=== PATIENT | female | born 1990 | race Caucasian/White ===

== ENCOUNTER 2020-05-05 11:24 | Outpatient (CLI) | payer OTHER, BC, SELFPAY ==
--- NOTE | ~2020-05-05 | XR_ITS ---
XR abdomen/kub 1V DATE: 05/05/2020 11:46 INDICATION: Bilateral kidney stones TECHNIQUE: 2 AP views COMPARISON: None FINDINGS: There are scattered bilateral calcified kidney stones. The psoas shadows are intact. No visceromegaly is detected. No bowel obstruction. The lung bases a re clear. Normal heart size. Included skeletal structures are unremarkable. IMPRESSION: Bilateral nephrolithiasis Reviewed, dictated and finalized at [facility]. Reviewed, dictated and finalized at location [facility]. IMPRESSION: Bilateral nephrolithiasis
== END 2020-05-05 11:25 | disposition home or self-care (01) ==
PROVIDERS: PCP Internal Medicine; Visit Provider Nurse Practitioner Adult Health
DX: N20.0 Calculus of kidney (principal)
CPT/HCPCS: 74018

== ENCOUNTER 2020-05-18 07:53 | Outpatient (CLI) | payer OTHER, SELFPAY ==
[2020-05-18 08:28] LABS: Partial Thromboplastin Time 26.8 SECONDS (22.3-36.8); Prothrombin Time 12.4 Seconds (11.1-14.7)
[2020-05-18 08:46] LABS: Beta HCG Quantitative < 2.39 mIU/ML
== END 2020-05-18 07:54 | disposition home or self-care (01) ==
PROVIDERS: PCP Internal Medicine; Visit Provider Urology
DX: Z01.818 Encounter for other preprocedural examination (principal); N20.0 Calculus of kidney
CPT/HCPCS: 36415; 84702; 85610; 85730; 87086

== ENCOUNTER 2020-05-26 01:03 | Outpatient (CLI) | payer OTHER, SELFPAY ==
[2020-05-26 19:19] LABS: SARS-CoV-2 RNA PCR Negative
== END 2020-05-26 01:04 | disposition home or self-care (01) ==
LOC: ANHCOVIDDT 01:03
PROVIDERS: PCP Internal Medicine; Visit Provider Urology
DX: Z01.812 Encounter for preprocedural laboratory examination (principal); Z11.59 Encounter for screening for other viral diseases
CPT/HCPCS: 87635; C9803; U0003

== ENCOUNTER 2020-05-28 02:32 | Day surgery (SDC) | payer OTHER, SELFPAY ==
[2020-05-12 11:13] VITALS: BMI 21.9
--- NOTE | 2020-05-21 13:02 | P.HP_ITS ---
History of Present Illness History of Present Illness Consent: Risks, benefits, and alternatives have been discussed and questions answered. Patient agrees to proceed with procedure. Chief complaint: Right Renal Stone Narrative: Mela John is a 29 year old female with a history of recurring urolithiasis. Recent imaging showed small bilateral nonobstructing renal stones. She somewhat symptomatic on the right prefers to go undergo ESWL. She denies fevers chills or gross hematuria. Review of Systems Cardiovascular: Cardiovascular: Denies chest pain, Denies lightheadedness, Denies palpitations and Denies dyspnea Respiratory: Respiratory: Denies dyspnea Gastrointestinal: Gastrointestinal: Denies diarrhea, Denies nausea and Denies vomiting Genitourinary: Genitourinary: Denies hematuria and Denies dysuria Endocrine: Endocrine: Denies palpitations PMFSH Past Medical History Medical History Anxiety Kidney stone UTI (urinary tract infection) Social History Social History Smoking status: Never smoker Spiritual care concerns: No Meds Home Medications and Allergies Home Medications Medication Instructions Recorded Confirmed Type escitalopram oxalate 10 mg PO HS 10/25/19 05/12/20 History norethindrone-e.estradiol-iron [Lo 1 tablet PO DAILY 10/25/19 05/12/20 History Loestrin Fe] Allergies Allergy/AdvReac Type Severity Reaction Status Date / Time ciprofloxacin Allergy Mild Rash Verified 05/12/20 11:13 Exam Const: General: no acute distress Resp: Effort & Inspection: normal respiratory effort GI: Inspection: non-distended GI Palp: No abdominal tenderness and No Guarding due to palpation present (GI) Auscultation: normal bowel sounds Assessment and Plan Assessment and plan (1) Bilateral renal stones: Code(s): N20.0 - Calculus of kidney Status: Acute Assessment and Plan: * Right ESWL
[2020-05-28] VITALS (7 sets, daily range): BP systolic 99–131; BP diastolic 62–93; PULSE 66–113; RESP 12–18; TEMP 36.2–37.6; O2SAT 97–100
--- NOTE | ~2020-05-28 | XR_ITS ---
EXAMINATION: XR abdomen/kub 1V DATE: 05/28/2020 09:27 INDICATION: Kidney stones. TECHNIQUE: A supine view of the abdomen on 2 radiographs was obtained. COMPARISON: CT abdomen and pelvis 10/25/2019, abdomen radiographs 05/05/2020 FINDINGS: There are no dilated loops of bowel. The kidneys are obscured by bowel. There are three 2 m m stones in right kidney. There is a 3 mm stone in left kidney. IMPRESSION: 1. Bilateral kidney stones. Reviewed, dictated and finalized at location [facility]. IMPRESSION: 1. Bilateral kidney stones.
--- NOTE | 2020-05-28 06:46 | WPDHPUPDATE1 ---
History and Physical Update Update Date/Time: 05/28/20 06:46 History and Physical has been reviewed, including an updated exam of the patient. There are NO changes in the patient's condition. Risks, benefits, and alternatives have been discussed and questions answered. Patient agrees to proceed with procedure.
[2020-05-28] MEDS: LACTATED RINGERS 1,000 ML 30 ML IV CONT ×2 (10:15→12:09)
--- NOTE | 2020-05-28 10:30 | WPDANESEPPF ---
Anes - Initial Pre Proc Eval Procedure: Operation Date: 05/28/20 11:00 Proposed Procedures p Right Extracorporeal Shock Wave Lithotripsy - Noble Lott MD Date/Time: 05/28/20 10:30 Surgeon: Noble Lott MD Pre Op Diagnosis: Right Renal Stone Patient Data Age: 29 Gender: F Height: 5 ft 2 in Weight: 56.7 kg Last Vital Signs Temp 99.7 F H 05/28/20 09:45 Pulse 113 H 05/28/20 09:45 Resp 18 05/28/20 09:45 BP 128/85 05/28/20 09:45 Pulse Ox 98 05/28/20 09:45 Allergies Allergy/AdvReac Type Severity Reaction Status Date / Time ciprofloxacin Allergy Mild Rash Verified 05/25/20 14:58 Home Medications Medication Instructions Recorded Confirmed Type escitalopram oxalate 10 mg PO HS 10/25/19 05/25/20 History norethindrone-e.estradiol-iron [Lo 1 tablet PO DAILY 10/25/19 05/25/20 History Loestrin Fe] Patient hx anesthesia problems: none Family hx anesthesia problems: none PMFSH Past Medical History Medical History Anxiety Kidney stone UTI (urinary tract infection) Social History Social History Smoking status: Never smoker Spiritual care concerns: No Anes - Eval Final PreProcedure Day of Procedure 05/28/20 10:30 Patient weight: normal Heart: regular rate and rhythm Lungs: clear to auscultation Airway: Mallampati scale class II Neurological: alert and oriented Last oral intake: >/= 8 hours ASA classification: II Emergent: no Anesthetic plan: proceed Anesthesia type and monitoring: general LMA and standard monitoring Informed Consent: The patient's anesthetic plan and its attendant risks and benefits were discussed with the patient/family/POA. Questions were solicited and answers provided to the satisfaction of the patient/family/POA.
[2020-05-28] MEDS: ceFAZolin 2 GM/D5W 50 ML 2 GM/50 ML BAG IVPB (11:04)
--- NOTE | 2020-05-28 11:30 | PM.PROC ---
Procedure Note - Detailed Date of procedure: 05/28/20 Pre-op diagnosis: Right Renal Stone Post-op diagnosis: same Procedure performed: Right ESWL Description of procedure: The patient was brought to the operative suite where she was placed in the supine position on the Dornier lithotripsy table. The focal point of the lithotripter was placed at a collection of small stones in the right renal pelvis. A total of 2500 shocks were delivered at a power setting of 2. There appeared to be good fragmentation of the stone. The patient tolerated the procedure well and was taken to the recovery room in good condition. Anesthesia: GLMA Surgeon: Noble Lott MD Estimated blood loss (mL): 0 Drains: No Packing: No Pathology: none sent Complications: No immediate complications Condition: stable Disposition: PACU
== END 2020-05-28 13:51 | disposition home or self-care (01) ==
PROVIDERS: PCP Internal Medicine; Visit Provider Urology
PROC: (CPT 50590; principal; 2020-05-28 11:00)
DX: N20.0 Calculus of kidney (principal); F41.9 Anxiety disorder, unspecified
CPT/HCPCS: 50590; 74018; J0690; J1100; J2250; J2405; J2704; J3010; J7120

== ENCOUNTER 2020-06-18 08:15 | Outpatient (CLI) | payer OTHER, SELFPAY ==
[2020-06-18 08:48] LABS: INR 0.9; Prothrombin Time 11.9 Seconds (11.1-14.7)
[2020-06-18 08:49] LABS: Partial Thromboplastin Time 25.9 SECONDS (22.3-36.8)
[2020-06-18 09:02] LABS: Beta HCG Quantitative < 2.39 mIU/ML
== END 2020-06-18 08:16 | disposition home or self-care (01) ==
LOC: ANHSURGERY 08:16
PROVIDERS: PCP Internal Medicine; Visit Provider Urology
DX: N20.0 Calculus of kidney (principal)
CPT/HCPCS: 36415; 84702; 85610; 85730; 87086; 87088

== ENCOUNTER 2020-06-23 00:57 | Outpatient (CLI) | payer OTHER, SELFPAY ==
[2020-06-23 18:19] LABS: SARS-CoV-2 RNA PCR Negative
== END 2020-06-23 00:58 | disposition home or self-care (01) ==
LOC: ANHCOVIDDT 00:58
PROVIDERS: PCP Internal Medicine; Visit Provider Urology
DX: Z01.812 Encounter for preprocedural laboratory examination (principal); Z20.828 Contact with and (suspected) exposure to other viral communicable diseases
CPT/HCPCS: 87635; C9803; U0003

== ENCOUNTER 2020-06-25 00:58 | Day surgery (SDC) | payer OTHER, SELFPAY ==
[2020-05-25 14:58] VITALS: BMI 21.9
--- NOTE | 2020-06-22 10:50 | P.HP_ITS ---
History of Present Illness History of Present Illness Consent: Risks, benefits, and alternatives have been discussed and questions answered. Patient agrees to proceed with procedure. Chief complaint: Left Renal Stone Narrative: Mela John is a 29 year old female with bilat. renal stones s/p right ESWL 05/28/2020. Review of Systems Cardiovascular: Cardiovascular: Denies chest pain, Denies lightheadedness, Denies palpitations and Denies dyspnea Respiratory: Respiratory: Denies dyspnea Gastrointestinal: Gastrointestinal: Denies diarrhea, Denies nausea and Denies vomiting Genitourinary: Genitourinary: Denies hematuria and Denies dysuria Endocrine: Endocrine: Denies palpitations [facility] Social History Social History Smoking status: Never smoker Spiritual care concerns: No Meds Home Medications and Allergies Home Medications Medication Instructions Recorded Confirmed Type Lo Loestrin Fe 1 tablet PO DAILY 10/25/19 06/09/20 History escitalopram oxalate 10 mg PO HS 10/25/19 06/09/20 History Allergies Allergy/AdvReac Type Severity Reaction Status Date / Time ciprofloxacin Allergy Mild Rash Verified 05/25/20 14:58 Exam Const: General: no acute distress Resp: Effort & Inspection: normal respiratory effort GI: Inspection: non-distended GI Palp: No abdominal tenderness and No Guarding due to palpation present (GI) Auscultation: normal bowel sounds Assessment and Plan Assessment and plan (1) Bilateral renal stones: Code(s): N20.0 - Calculus of kidney Status: Acute Assessment and Plan: * Left ESWL
--- NOTE | 2020-06-24 11:54 | P.PNAN_ITS ---
Anes - Initial Pre Proc Eval Procedure: Operation Date: 06/25/20 07:30 Proposed Procedures p Left Extracorporeal Shock Wave Lithotripsy - Noble Lott MD Date/Time: 06/24/20 11:54 Surgeon: Noble Lott MD Pre Op Diagnosis: Left Renal Stone Patient Data Age: 29 Gender: F Height: 1.57 m Weight: 54.43 kg Allergies Allergy/AdvReac Type Severity Reaction Status Date / Time ciprofloxacin AdvReac Mild Rash Verified 06/25/20 06:22 Home Medications Medication Instructions Recorded Confirmed Type Lo Loestrin Fe 1 tablet PO DAILY 10/25/19 06/25/20 History escitalopram oxalate 10 mg PO HS 10/25/19 06/25/20 History Patient hx anesthesia problems: none Family hx anesthesia problems: none [facility] Social History Social History Smoking status: Never smoker Spiritual care concerns: No Anes - Eval Final PreProcedure Day of Procedure 06/24/20 11:54 Patient weight: normal Heart: regular rate and rhythm Lungs: clear to auscultation and normal air movement Airway: Mallampati scale class 1 Neurological: alert and oriented Last oral intake: >/= 8 hours ASA classification: II Emergent: no Anesthetic plan: proceed Anesthesia type and monitoring: general LMA and standard monitoring Informed Consent: The patient's anesthetic plan and its attendant risks and benefits were discussed with the patient/family/POA. Questions were solicited and answers provided to the satisfaction of the patient/family/POA.
[2020-06-25] VITALS (8 sets, daily range): BP systolic 100–116; BP diastolic 61–84; PULSE 73–110; RESP 10–16; TEMP 36.2–37; O2SAT 96–99
--- NOTE | ~2020-06-25 | XR_ITS ---
EXAMINATION: XR abdomen/kub 1V EXAM DATE: 06/25/2020 06:12 INDICATION: For lithotripsy. TECHNIQUE: Frontal projection(s) of the abdomen for interpretation. Comparison is made to prior exami nation from 05/28/2020. FINDINGS: There is expected amount of colonic stool and gas. No small bowel dilation, nonobstructiv e bowel gas pattern. Stool overlying the renal contours, with possibility of left nephrolithiasis, i ndicated. There is no organomegaly suspected. The bones are unremarkable. There is no free intr aperitoneal air. The lung bases are clear. IMPRESSION: Stool overlying the renal contours, with possibility of left nephrolithiasis, indicated. Reviewed, dictated and finalized at location A. IMPRESSION: Stool overlying the renal contours, with possibility of left nephr olithiasis, indicated.
--- NOTE | 2020-06-25 06:43 | WPDHPUPDATE1 ---
History and Physical Update Update Date/Time: 06/25/20 06:43 History and Physical has been reviewed, including an updated exam of the patient. There are NO changes in the patient's condition. Risks, benefits, and alternatives have been discussed and questions answered. Patient agrees to proceed with procedure.
[2020-06-25] MEDS: LACTATED RINGERS 1,000 ML 30 ML IV CONT ×2 (06:56→08:36)
[2020-06-25] MEDS: ceFAZolin 2 GM/D5W 50 ML 2 GM/50 ML BAG IVPB (07:22)
--- NOTE | 2020-06-25 07:54 | PM.PROC ---
Procedure Note - Detailed Date of procedure: 06/25/20 Pre-op diagnosis: Left Renal Stone Post-op diagnosis: same Procedure performed: Left ESWL Description of procedure: The patient was brought to the operative suite where she was placed in the supine position on the Dornier lithotripsy table. The focal point of the lithotripter was placed at a 5mm left renal calculus. A total of 2500 shocks were delivered at a power setting of 3. There was a smaller stone (1-2mm) in the left lower pole which we did not treat. There appeared to be good fragmentation of the stone. The patient tolerated the procedure well and was taken to the recovery room in good condition. Anesthesia: GLMA Surgeon: Noble Lott MD Estimated blood loss (mL): 0 Drains: No Packing: No Pathology: none sent Complications: No immediate complications Condition: stable Disposition: PACU
[2020-06-25] MEDS: KETOROLAC 30 MG/ML VIAL (*BKC) IV PUSH (08:00)
== END 2020-06-25 09:50 | disposition home or self-care (01) ==
PROVIDERS: PCP Internal Medicine; Visit Provider Urology
PROC: (CPT 50590; principal; 2020-06-25 07:30)
DX: N20.0 Calculus of kidney (principal); Z87.440 Personal history of urinary (tract) infections; F41.9 Anxiety disorder, unspecified; Z79.3 Long term (current) use of hormonal contraceptives; Z79.899 Other long term (current) drug therapy
CPT/HCPCS: 50590; 74018; J0690; J1100; J1885; J2250; J2405; J2704; J3010; J7120

== ENCOUNTER 2020-07-13 12:02 | Outpatient (CLI) | payer OTHER, SELFPAY ==
--- NOTE | ~2020-07-13 | XR_ITS ---
EXAMINATION: XR abdomen/kub 1V EXAM DATE: 07/13/2020 12:18 INDICATION: Bilateral kidney stones. TECHNIQUE: Frontal projection of the upper abdomen, frontal projection lower abdomen/pelvis for inter pretation. Comparison is made to prior examination from 06/25/2020. FINDINGS: Probable identification of punctate 2 mm right calyceal stone. Stool is overlying the left renal contour. No pelvic calcifications. Expected amount of colonic stool. No small bowel dilation. There are no osseous abnormalities identified. There is no organomegaly. IMPRESSION: Probable punctate right nephrolithiasis. Reviewed, dictated and finalized at location A.
== END 2020-07-13 12:03 | disposition home or self-care (01) ==
LOC: ANHIMG 12:05
PROVIDERS: PCP Internal Medicine; Visit Provider Nurse Practitioner Adult Health
DX: N20.0 Calculus of kidney (principal)
CPT/HCPCS: 74018

== ENCOUNTER 2023-02-02 11:33 | Emergency (ER) | payer OTHER, SELFPAY ==
--- NOTE | 2023-02-02 11:40 | ED.URI ---
HPI - URI/Sore Throat General Stated Complaint: Sore Throat Time Seen by Provider: 02/02/23 11:53 Source: patient and RN notes reviewed Mode of arrival: ambulatory Limitations: no limitations History of Present Illness HPI Narrative: 32-year-old female presents concern for sore throat chills started yesterday. 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 She denies fever, sweats, runny nose, stuffy nose, cough MD elicited complaint: sore throat Related Data Home Medications Medication Instructions Recorded Confirmed norethindrone 1 mg-ethinyl 1 tablet PO DAILY 10/25/19 06/25/20 estradiol 10 mcg (24)-iron 10 mcg(2) tablet (Lo Loestrin Fe) nadolol 20 mg tablet 20 mg PO BID 02/02/23 02/02/23 Allergies Allergy/AdvReac Type Severity Reaction Status Date / Time ciprofloxacin AdvReac Mild Rash Verified 02/02/23 11:44 Review of Systems Review of Systems: CONSTITUTIONAL: Denies malaise, sweats, or fever. Reports chills EYES: Denies visual changes, redness, or discharge. ENT: Denies rhinorrhea, congestion, sinus pain, otalgia. Reports sore throat. CARDIOVASCULAR: Denies chest pain, palpitations, or edema. RESPIRATORY: Denies cough. Denies dyspnea. GASTROINTESTINAL: Denies abdominal pain, nausea, vomiting, diarrhea SKIN: Denies rash or itching. MUSCULOSKELETAL: Denies myalgia. NEUROLOGIC: Denies headache. All systems reviewed & are unremarkable except as noted in HPI and below PMFSH Past Medical History Medical History (Updated 02/02/23 @ 12:15 by Diana Foley NP) Anxiety Kidney stone UTI (urinary tract infection) Social History Social History Smoking status: Never smoker Spiritual care concerns: No Comments At time of signature, agree with nursing past medical, surgical, social and family history. There is no relevant family history pertinent to the presenting complaint Exam Narrative: GENERAL: Well-appearing, well-nourished, and in no acute distress. HEAD: Normocephalic EYES: PERRLA, conjunctivae clear ENT: Nares clear, turbinates edematous and erythematous, clear discharge. Mucous membranes moist. TM pearly adams with dull light reflex bilaterally; no tragal tenderness. Oropharynx not erythematous without lesions. Tonsils not enlarged and without exudate, no drooling, no hoarseness, no trismus, uvula midline. NECK: Supple. No lymphadenopathy CHEST: Clear to auscultation, breath sounds equal. No wheezing, rhonchi, rales, or stridor. No respiratory distress, speaks in full sentences. HEART: Regular rate and rhythm. No murmur heard. SKIN: Warm, dry, no rash. NEURO: Alert and oriented x3. PSYCH: Normal mood and affect Course Course Emergency Course: Patient is aware of diagnosis, understands and agrees to treatment plan. Anticipatory guidance given. Patient agrees to follow-up as directed and is aware of reasons to seek care at the emergency department. Portions of this record may have been created with voice recognition software Level of Care: Express Care Visit Vital Signs Vital signs: Reviewed. MDM - URI/Sore Throat MDM Narrative Medical decision making narrative: Differential diagnosis considered: Barrow virus, strep pharyngitis, allergic rhinitis, upper respiratory tract infection, sinusitis, rhinosinusitis, nasopharyngitis. viral pharyngitis, otitis media, otitis externa, pneumonia, bronchitis, viral cough syndrome, viral syndrome, and influenza. Exam findings show no acute concerns or changes; patient is non-toxic appearing and is in no distress. Patient is appropriate for outpatient treatment and follow-up. Lab Data Attestation: I reviewed the patient's lab results. Critical Care Time Critical Care Time Critical Care Time: No Discharge Plan Discharge Clinical Impression: Pharyngitis Patient Disposition: Home, Self-Care Condition: Stable Additional Instructions: Your rapid flu and COVID tests are negative Your rapid strep sw
[2023-02-02 11:43] VITALS: BP 108/86; PULSE 77; RESP 16; TEMP 36.4; O2SAT 100
== END 2023-02-02 12:20 | disposition home or self-care (01) ==
PROVIDERS: Emergency Provider Nurse Practitioner; PCP Internal Medicine
DX: J02.9 Acute pharyngitis, unspecified (principal); Z20.822 Contact with and (suspected) exposure to COVID-19
CPT/HCPCS: 87081; 87426; 87804; 87880; 99213; C9803; G0463

== ENCOUNTER 2023-02-12 15:45 | Emergency (ER) | payer OTHER, SELFPAY ==
[2023-02-12 15:58] VITALS: BP 125/85; PULSE 79; RESP 18; TEMP 36.3; O2SAT 100
--- NOTE | 2023-02-12 16:21 | ED.URI ---
HPI - URI/Sore Throat General Chief Complaint: Upper Respiratory Infection Stated Complaint: congestion Time Seen by Provider: 02/12/23 15:51 Source: patient Mode of arrival: ambulatory Limitations: no limitations History of Present Illness HPI Narrative: 32-year-old female presents to [facility] with complaints of sinus pressure, nasal congestion, left ear pressure and runny nose for the past 10 days. Patient was evaluated here on February 02, diagnosed with pharyngitis and had negative COVID, strep and influenza at that time. Patient takes Xyzal daily for seasonal allergies. Patient also has been taking [id number] Sudafed with minimal relief. Patient shortness of breath, wheezing, nausea, vomiting or diarrhea MD elicited complaint: nasal congestion and other (sinus pressure, runny nose ) Onset (ago): day(s) () Able to tolerate fluids by mouth: Yes Relieving factors: nothing Treatments prior to arrival: cold medicine Related Data Home Medications Medication Instructions Recorded Confirmed norethindrone 1 mg-ethinyl 1 tablet PO DAILY 10/25/19 02/12/23 estradiol 10 mcg (24)-iron 10 mcg(2) tablet (Lo Loestrin Fe) nadolol 20 mg tablet 20 mg PO BID 02/02/23 02/12/23 Allergies Allergy/AdvReac Type Severity Reaction Status Date / Time ciprofloxacin AdvReac Mild Rash Verified 02/02/23 11:44 Review of Systems Constitutional: Constitutional: Denies chills, Denies fatigue, Denies fever(s) and Denies weakness ENT: Denies vertigo, Denies dizziness, Denies epistaxis and Reports nasal congestion Comments: Sinus pressure, left ear pressure Respiratory: Respiratory: Denies chest congestion, Denies cough, Denies dyspnea and Denies wheezing Gastrointestinal: Gastrointestinal: Denies diarrhea, Denies nausea and Denies vomiting Integumentary/Breasts: Skin/Breast: Denies pruritus, Denies erythema and Denies rash Neurologic: Denies vertigo, Denies dizziness, Denies syncope and Denies headache(s) [facility] Past Medical History Medical History (Updated 02/12/23 @ 16:30 by Dunia Spain APRN) Anxiety Kidney stone UTI (urinary tract infection) Social History Social History Smoking status: Never smoker Spiritual care concerns: No Comments At time of signature, I agree with nursing past medical, surgical, social and family history. There is no relevant family history pertinent to the presenting complaint. Exam Const: General: healthy appearing Nutritional Appearance: well nourished Orientation/consciousness: patient oriented x3 Limitations: no limitations HENMT: Head: normal to inspection Ears: external ears normal, EAC's normal and TM abnormal wth effusion serous on the left Face/Nose/Sinus: Normal external nose present Face and sinus: sinus tenderness frontal Mouth: Yes Normal oral and palatal mucosa present and Yes moist mucous membranes Throat: uvula midline Other: Moderate nasal congestion noted Eyes: Conjunctivae: conjunctivae normal Neck: Neck: normal visual inspection Resp: Effort & Inspection: normal respiratory effort and not labored Auscultation: clear to auscultation bilaterally, no crackles, no rales, no rhonchi and no wheezes Cardio: Rate: regular rate Rhythm: regular rhythm Skin: General skin exam: normal color Neuro: General: patient oriented x3 Speech: normal speech Psych: Affect: normal affect Attitude: cooperative Course Course Level of Care: Express Care Visit Vital Signs Vital signs: Vital Signs Temperature 36.3 C L 02/12/23 15:58 Pulse Rate 79 02/12/23 15:58 Respiratory Rate 18 02/12/23 15:58 Blood Pressure 125/85 02/12/23 15:58 Pulse Oximetry 100 02/12/23 15:58 Oxygen Delivery Room Air 02/12/23 15:58 Temperature 36.3 C L 02/12/23 15:58 Pulse Rate 79 02/12/23 15:58 Respiratory Rate 18 02/12/23 15:58 Blood Pressure 125/85 02/12/23 15:58 Pulse Oximetry 100 02/12/23
== END 2023-02-12 16:36 | disposition home or self-care (01) ==
PROVIDERS: Emergency Provider Nurse Practitioner Family; PCP Internal Medicine
DX: J32.9 Chronic sinusitis, unspecified (principal)
CPT/HCPCS: 99213; G0463

== ENCOUNTER 2025-01-02 05:50 | Observation (INO) | payer OTHER, SELFPAY ==
[2025-01-02] VITALS (18 sets, daily range): BP systolic 112–137; BP diastolic 76–99; PULSE 72–89; RESP 16; TEMP 37.3; O2SAT 99–100; BMI 26.6
--- NOTE | ~2025-01-02 | US_ITS ---
EXAMINATION: US renal BI DATE: 01/02/2025 11:23 INDICATION: Left flank pain. TECHNIQUE: Multiple ultrasound grayscale images of the kidneys were obtained. COMPARISON: CT abdomen and pelvis 10/25/2019 FINDINGS: The right kidney measures 11.7 x 5.6 x 5.0 cm. The left kidney measures 11.4 x 5.4 x 5.7 cm. The kidn eys demonstrate normal parenchymal echogenicity. There is no hydronephrosis. The bladder is normal. IMPRESSION: 1. Normal kidneys. No hydronephrosis. Reviewed, dictated and finalized at location A. [employer]
--- NOTE | 2025-01-02 06:30 | OBADM ---
This patient, Mela Grider, admitted to the OB room 117 for observation. Patient/family oriented to hospital policies and general routines including ID bracelet, bed and alarms, visiting hours, pain management, procedures, bathroom and other care routines, personal items, smoking policy, room service/diet, and visiting hours. Patient/Family are encouraged to report perceived risks to care and to ask questions if they do not understand what they are told or what they should do.
[2025-01-02 06:49] LABS: Add Urine Microscopic? YES; Appearance Urine Turbid (Clear); Bacteria Urine 1+ /hpf; Bilirubin Urine Negative (Negative); Blood Urine 3+ (Negative); Color Urine Yellow (Yellow); Glucose Urine UA Negative (Negative); Ketones Urine Negative (Negative); Leukocyte Esterase Ur 3+ LEU/UL (Negative); Nitrate Urine Negative (Negative); Non Pathogenic Casts 0-2; Protein Urine Trace mg/dL (Negative); RBC Urine >100 /hpf (0-2); Specific Grav Ur 1.016 (1.001-1.035); Squamous Epithelial Cell Urine Many /hpf (Few); WBC Urine 21-50 /hpf (0-3); pH Urine 6.5 (5.0-9.0)
[2025-01-02] MEDS: LACTATED RINGERS 1,000 ML 999 ML IV CONT (07:40)
--- OUTSIDE RECORDS SUMMARY | 2025-01-05 07:20 | XMS_ITS | Clinical Summary ---
Author Organization [facility] D Address [address] [place] [address] Care Team Providers Care Air Duct Mechanic Name Role Phone Jennifer Huynh RN Unavailable Unavailable Jeferson Colindres MD Primary Care Provider [phone] Allergies Active Allergy Reactions Criticality Noted Date Comments Ciprofloxacin Rash Medium 05/30/2023 Medications nadoloL (CORGARD) 20 mg tablet Take 1 tablet (20 mg total) by mouth daily 11/03/2022 Active PNV cmb 94-reit-XP-omega -3-dha 29 mg iron- 1 mg-200 mg combo pack Take by mouth Active Active Problems Problem Noted Date Diagnosed Date Supervision of other normal , antepartu m 09/08/2024 Overview (12/03/2024): NOTES: Partner name: Sean. CARDOSO has a younger brother with FOP 1st Trimester: [x] Dating Criteria: JOSÉ MIGUEL given 04/20/25 [x] Labs: Drawn 09/08/24 No results found for: [id number] , [id number] , ABORH [x] NIPT: discussed 2nd -3rd Trimester: [x] Anatomy ultrasound: [] echo (if monochorionic, IVF, hx CHD) - ORDERED [] 1h GTT: No results found for: [id number] [] CBC: [] Antibody screen: [x] Flu Shot : 08/07/24 [] Tdap (28-32wks): [] Rhogam (28-32wks if Rh neg): [] 32 wk ultrasound: [] RSV vaccine (32-36wks) [] GBS (36w or planned delivery sooner): No results found for: STREPBDNA , MICROBIOLOGY Counseling: [] Route of Delivery: [] Timing of Delivery: [] Post risks: [] Aml Analyst [] Circumcision [] Method of contraception (if desires, tubal benefits checked) Estimated Date of Delivery Comme nts Yes 04/20/2025 Based on last me nstrual period of 07/14/2024 Encounters Date Type Department Care Team Description 12/30/2024 5:05 PM ROVING MARKER [facility] [address] [place] [phone] Zaynab Degroot MD Encounter for supervision of other normal in second trimester (Primary Dx); 24 weeks gestation of 12/03/2024 9:40 AM ROVING MARKER Office Visit [facility] [address] [place] [phone] Zaynab Degroot MD Encounter for supervision of other normal in second trimester (Primary Dx); 20 weeks gestation of 12/03/2024 8:30 AM ROVING MARKER Ancillary Procedure [facility] [address] [place] [phone] Encounter for supervision of other normal in second trimester 11/07/2024 10:20 AM ROVING MARKER Office Visit [facility] [address] [place] [phone] Zaynab Degroot MD Encounter for supervision of normal first in second trimester (Primary Dx); 16 weeks gestation of 10/13/2024 Telephone [facility] in [address] [place] [phone] Zaynab Degroot MD from Last 3 Months Immunizations Immunization Administration Dates Next Due Influenza, Unspecified 08/07/2024 Surgical History Surgery Date Site/Laterality Comments WISDOM TOOTH EXTRACTION age 18 LITHOTRIPSY 10/29/2019 - 10/28/2020 Medical History Medical History Date Comments Kidney stones Family History Medical History Relation Name Comments Breast cancer Maternal Grandmother Breast cancer Mother's Sister Relation Name Status Comments Maternal Grandmother Mother's Sister Social History Tobacco Use Types Packs/Day Years Used Date Smoking Tobacco: Never Tobacco Cessation:Counseling Given: Not Answered AUDIT-C Answer Date Recorded Q1: How often do you have a drink containing alcohol? Never 03/19/2024 Q2: How many drinks containi ng alcohol do you have on a typical day when you are drinking? Patient does not drink Q3: How often do you have si x or more drinks on one occasion? Never 03/19/2024 Estimated Date of Delivery Comme nts Yes 04/20/2025 Based on last me nstrual period of 07/14/2024 Sex and Gender Information Value Date Recorded Sex Assigned at Not on file Legal Sex Female 11:56 PM ROVING MARKER Gender Identity Female 05/29/2023 1:12 PM CDT Sexual Orientation Straight 05/29/2023 1: 12 PM CDT Obstetrics History Para Term AB IAB SAB Ectopic Multiple Livin g Live Births 1 0 0 0 0 0 0 0 0 0 0 Date Outcome GA Total Labor Labor/2nd/3rd Weight Sex Type Anes PTL Pavithra A1 A5 Name Clin Current Summary Episode Dates Number of Fetuses Estimated Date of Delivery 09/08/2024 - Present (01/05/2025) 1 04/20/2025 (set by Cristy Longo NP on 09/08/2024 based on Last Menstrual Period on 07/14/2024) Dating Summary Based On JOSÉ MIGUEL GA Diff Last Menstrual Period on 07/14/2024 04/20/2025 Working Ultrasound on 09/08/2024 04/24/2025 -4d GA:7w3d Notes Progress Notes - Office Visi t - 12/30/2024 - GA:24w1d 12/30/2024 - 24w1d - Zaynab Ramos MD Presents for 24 week PNV. She is feeling well. Notes good movement. Denies OB complaints. echo scheduled, await imaging results. RTO 4 weeks, will have GCT and CBC at that time. NG MARKER Progress Notes - Office Visi t - 12/03/2024 - GA:20w2d 12/03/2024 - 20w2d - Zaynab Ramos MD Patient presents for 20 week PNV. Anatomy scan performed today - normal anatomy, EFW 51% Overall, feeling well. Discussed movement. RTO 4 weeks NG MARKER Progress Notes - Office Visi t - 11/07/2024 - GA:16w4d 11/07/2024 - 16w4d - Zaynab Ramos MD Presents for 16 week PNV. Feeling well. Intermitten movement. Normal NIPT results RTO 4 weeks for anatomy scan NG MARKER Progress Notes - Office Visi t - 10/06/2024 - GA:12w0d 10/06/2024 - 12w0d - Zaynab Ramos MD Presents for 12 week PNV. Feeling ok, nausea improving Reviewed OB labs. Obtained NIPT testing. Declines Carrier screening testing. NG MARKER Progress Notes - Office Visi t - 09/08/2024 - GA:8w0d 09/08/2024 - 8w0d - Ivory Longo NP Images from the original note were not included. Subjective: Mela Grider is a 33 y.o. female who presents for Chief Complaint Patient presents with Amenorrhea Pt offered and declined qualification engineer for today's visit. . HPI: Pt offered and declined qualification engineer. Patient presents for amenorrhea. She took Letrozole 5mg this cycle. LMP 07/14/24. Previous Medications: Outpatient Medications Prior to Visit Medication Sig Dispense Refill nadoloL (CORGARD) 20 mg tablet Take 1 tablet (20 mg total) by mouth daily PNV cmb 87-sxph-SI-omega-3-dha 29 mg iron- 1 mg-200 mg combo pack Take by mouth letrozole (FEMARA) 2.5 mg tablet Take 2 tablets (5 mg total) by mouth daily On cycles day 3-7 10 tablet 0 No facility-administered medications prior to visit. Allergies: Allergies Allergen Reactions Ciprofloxacin Rash Obstetric History: OB History Para Term AB Living 1 0 0 0 0 0 SAB IAB Ectopic Multiple Live Births 0 0 0 0 0 # Outcome Date GA Lbr Silvio/2nd Weight Sex Type Anes PTL Lv 1 Current AUDIO VISUAL SPECIALIST History: Patient's last menstrual period was 07/14/2024. Screening History: Medical History: Past Medical History: Diagnosis Date Kidney stones Surgical History: Past Surgical History: Procedure Laterality Date LITHOTRIPSY 2019 WISDOM TOOTH EXTRACTION age 18 Family History: Family History Problem Relation Age of Onset Breast cancer Maternal Grandmother Breast cancer Mother's Sister Social: Social History Tobacco Use Smoking status: Never Smokeless tobacco: None Substance and Sexual Activity Drug use: Never Sexual activity: Yes Partners: Male control/protection: None Alcohol Use: Not At Risk (03/19/2024) AUDIT-C Frequency of Alcohol Consumption: Never Average Number of Drinks: Patient does not drink Frequency of Binge Drinking: Never REVIEW OF SYSTEMS: Review of Systems Constitutional: Negative for chills, fever and unexpected weight change. HENT: Negative. Eyes: Negative for photophobia and visual disturbance. Respiratory: Negative for shortness of breath and wheezing. Cardiovascular: Negative for chest pain and palpitations. Gastrointestinal: Negative for abdominal pain, constipation, diarrhea, nausea and vomiting. Endocrine: Negative. Genitourinary: Negative for dysuria, flank pain and vaginal bleeding. Skin: Negative for rash. Allergic/Immunologic: Negative. Neurological: Negative for dizziness, light-headedness and headaches. Hematological: Negative. Psychiatric/Behavioral: Negative for dysphoric mood. All other systems reviewed and are negative. Objective BP 118/74 Wt 142 lb (64.4 kg) LMP 07/14/2024 BMI 25.97 kg/m Physical Exam General: alert, orientated, cooperative Hot Dipper exam: External:normal appearing and no lesions Urethra: normal appearing, No lesions or prolapse. Bladder: normal appearance, No masses or tenderness. Vagina: Healthy, pink mucosa without lesions, no abnormal discharge or bleeding Cervix: Normal, no lesions Assessment and Plan 1. Encounter to determine viability of , single or unspecified fetus (Primary) - US Ob Limited JOSÉ MIGUEL 04/20/25 My total encounter time on 09/08/2024 was 50 minutes which was spent in the activities documented in the note. This includes time spent prior to the visit and after the visit in direct care of the patient. This time does not include time spent in any separately reportable services. 2. 7 weeks gestation of 3. test-positive 4. Screening for STDs (sexually transmitted diseases) - N. gonorrhoeae/C. trachomatis Amplification Urine; Future - N. gonorrhoeae/C. trachomatis Amplification Urine - Hepatitis B Surface Antigen Blood; Future - HEPATITIS C AB W/REFL TO HCV RNA, QN, PCR (REFL); Future - HIV 1/2 Antibody plus p24 Antigen Blood; Future - Hepatitis B Surface Antigen Blood - HEPATITIS C AB W/REFL TO HCV RNA, QN, PCR (REFL) - HIV 1/2 Antibody plus p24 Antigen Blood 5. Encounter for supervision of normal first in first trimester - Urine culture Urine, bladder; Future - POCT OB urine short dip (glucose, protein, ketones) - Urine culture Urine, bladder - ABO/Rh; Future - Rubella IgG antibody Blood; Future - RPR Titer Blood; Future - CBC without differential; Future - Hemoglobin A1c; Future - Hepatitis B Surface Antigen Blood; Future - HEPATITIS C AB W/REFL TO HCV RNA, QN, PCR (REFL); Future - HIV 1/2 Antibody plus p24 Antigen Blood; Future - TSH+Free T4; Future - Antibody screen; Future - Hgb Fractionation [place]; Future - ABO/Rh - Rubella IgG antibody Blood - RPR Titer Blood - CBC without differential - Hemoglobin A1c - Hepatitis B Surface Antigen Blood - HEPATITIS C AB W/REFL TO HCV RNA, QN, PCR (REFL) - HIV 1/2 Antibody plus p24 Antigen Blood - TSH+Free T4 - Antibody screen - Hgb Fractionation [place] 6. Amenorrhea Lab Results Component Value Date HCGU Positive (A) 09/08/2024 - POCT hCG, urine 7. Encounter for supervision of other normal in second trimester - US Ob 14 Weeks Or Over; Future 8. Encounter for supervision of normal first , third trimester - US Ob Follow Up; Future Return in about 4 weeks (around 10/06/2024) for ob return. Cristy Longo NP NG MARKER Last Filed Vital Signs Vital Sign Reading Time Taken Comments Blood Pressure 120/68 12/30/2024 4:57 PM ROVING MARKER Pulse - - Temperature - - Respiratory Rate - - Oxygen Saturation - - Inhaled Oxygen Concentration - - Weight 70.3 kg (155 lb) 12/30/2024 4:57 PM ROVING MARKER Height 157.5 cm (5' 2 ) 05/30/2023 9:21 AM CDT Body Mass Index 28.35 05/30/2023 9:21 AM CDT Plan of Treatment Health Maintenance Due Date Last Done Comments Cervical Cancer Screening 1992 Depression Screening 1992 DTaP/Tdap/Td Vaccine (1 - Tdap) 2003 Varicella Vaccines (1 of 2 - 13+ 2-dose series) 2005 Hepatitis B Screening 2010 Covid-19 Vaccine ( season) 2024 10/30/2021, 01/11/2021, 12/02/2020 Regular Well Visit/Exam 18-64 10/24/2024 10/24/2023 Influenza Vaccine Completed 08/07/2024, , 09/07/2021, Additional history exists Hepatitis C Screening Completed 09/08/2024 HPV Vaccines Aged Out No longer eligi ble based on patient's age to complete this topic Pneumococcal vaccine <65 Aged Out No longer eligible based on patient's age to complete this topic Procedures Procedure Name Priority Date/Time Associated Diagnosis Comments POCT OB URINE SHORT DIP (GLUCOSE, PROTEIN, KETONES) Routine 12/30/2024 4:57 PM ROVING MARKER Encounter for supervision of other normal in second trimester 24 weeks gestation of POCT OB URINE SHORT DIP (GLUCOSE, PROTEIN, KETONES) Routine 12/03/2024 9:49 AM ROVING MARKER Encounter for supervision of other normal in second trimester 20 weeks gestation of US OB 14 WEEKS OR OVER Schedule Routine, Read Routine (OP Routine) 12/03/2024 8:22 AM ROVING MARKER Encounter for supervision of other normal in second trimester POCT OB URINE SHORT DIP (GLUCOSE, PROTEIN, KETONES) Routine 11/07/2024 10:34 AM ROVING MARKER Encounter for supervision of normal first in second trimester 16 weeks gestation of HEPATITIS C AB W/REFL TO HCV RNA, QN, PCR (REFL) Routine 09/08/2024 10:52 AM ROVING MARKER Screening for STDs (sexually transmitted diseases) Encounter for supervision of normal first in first trimester from Last 3 Months or Most Recently Relevant to Health Maintenance Results * POCT OB urine short dip (glucose, protein, ketones) (12/30/2024 4:57 PM ROVING MARKER) Glucose, ur, POC Negative Negative MG/DL Protein, ur, POC Negative Negative Ketones, ur, POC Negative Negative Urine 12/30/2024 4:57 PM ROVING MARKER us Zaynab Degroot MD POINT OF CARE TEST O RDERABLES Final Result * POCT OB urine short dip (glucose, protein, ketones) (12/03/2024 9:49 AM ROVING MARKER) Glucose, ur, POC Negative Negative MG/DL Protein, ur, POC Negative Negative Ketones, ur, POC Negative Negative Urine 12/03/2024 9:49 AM ROVING MARKER us Zaynab Degroot MD POINT OF CARE TEST O RDERABLES Final Result * US Ob 14 Weeks Or Over (12/03/2024 8:22 AM ROVING MARKER) Fetus# Fetus1 VIEWPOINT Estimated Weight 352 g&grams VIEWPOINT Placenta Details posterior VIEWPOINT Presentation Vertex VIEWPOINT Anatomical Region Laterality Modality Abdomen N/A Ultrasound 12/03/2024 8:23 AM ROVING MARKER Impressions 12/03/2024 9:52 AM ROVING MARKER Anatomy screen complete and within normal limits. Growth and fluid are within normal limits. Gender - Seen Narrative Procedure Note Zaynab Degroot MD - 12/03/2024 IMPRESSION: Anatomy screen complete and within normal limits. Growth and fluid arewithin normal limits. Gender - Seen Cristy Longo BOX PERSON IMG OB US PROCEDURES Fi nal Result * POCT OB urine short dip (glucose, protein, ketones) (11/07/2024 10:34 AM ROVING MARKER) Glucose, ur, POC Negative Negative MG/DL Protein, ur, POC Negative Negative Ketones, ur, POC Negative Negative Urine 11/07/2024 10:3 4 AM ROVING MARKER Zaynab Degroot MD POINT OF CARE TEST O RDERABLES Final Result * HEPATITIS C AB W/REFL TO HCV RNA, QN, PCR (REFL) (09/08/2024 10:52 AM ROVING MARKER) Hep C Ab Non Reactive Non Reactive [facility] - 01 Blood 09/08/2024 10:5 2 AM ROVING MARKER 09/08/2024 Narrative [facility] - 09/09/2024 9:12 AM ROVING MARKER Performed at: - [facility] [address] [id number] Flow Worker: Scott Duran PhD, Phone: [phone] Cristy Longo BOX PERSON LAB BLOOD ORDERABLES Fi nal Result [facility] - 01 from Last 3 Months or Most Recently Relevant to Health Maintenance Insurance CHOICE PLUS CHOICE PLUS CHOICE PLUS Care Teams Air Duct Mechanic Relationship Specialty Start Date End Date Jeferson Colindres MD PCP - General Internal Medicine 12/04/22 Jennifer Huynh, RN [facility] Breast Risk Program Nurse 10/03/22
--- OUTSIDE RECORDS SUMMARY | 2025-01-05 07:20 | XMS_ITS | Referral Summary ---
Author Organization [facility] D Address [address] [place] [address] Care Team Providers Care Payment Analyst Name Role Phone Jennifer Huynh RN Unavailable Unavailable Jeferson Colindres MD Primary Care Provider [phone] Encounters Date Type Department Care Team Description 12/30/2024 5:05 PM IC DESIGN ENGINEER [facility] Visit [facility] [address] [place] [phone] Zaynab Degroot MD Encounter for supervision of other normal in second trimester (Primary Dx); 24 weeks gestation of 12/03/2024 9:40 AM IC DESIGN ENGINEER Office Visit [facility] in [address] [place] [phone] Zaynab Degroot MD Encounter for supervision of other normal in second trimester (Primary Dx); 20 weeks gestation of 12/03/2024 8:30 AM IC DESIGN ENGINEER Ancillary Procedure [facility] [address] [place] [phone] Encounter for supervision of other normal in second trimester 11/07/2024 10:20 AM IC DESIGN ENGINEER Office Visit [facility] [address] [place] [phone] Zaynab Degroot MD Encounter for supervision of normal first in second trimester (Primary Dx); 16 weeks gestation of 10/13/2024 [facility] [address] [facility] [address] [place] [phone] Zaynab Degroot MD from Last 3 Months Allergies Active Allergy Reactions Criticality Noted Date Comments Ciprofloxacin Rash Medium 05/30/2023 Medications nadoloL (CORGARD) 20 mg tablet Take 1 tablet (20 mg total) by mouth daily 11/03/2022 Active PNV cmb 63-hcyc-JT-omega -3-dha 29 mg iron- 1 mg-200 mg combo pack Take by mouth Active Active Problems Problem Noted Date Diagnosed Date Supervision of other normal , antepartu m 09/08/2024 Overview (12/03/2024): NOTES: Partner name: Sean. CARDOSO has a younger brother with FOP 1st Trimester: [x] Dating Criteria: JOSÉ MIGUEL given 04/20/25 [x] Labs: Drawn 09/08/24 No results found for: [id number] , [id number] , ABORH [x] NIPT: discussed 2nd -3rd Trimester: [x] Anatomy ultrasound: [] echo (if monochorionic, IVF, hx CHD) - ORDERED [] 1h GTT: No results found for: [id number] [] CBC: [] Antibody screen: [x] Flu Shot : 08/07/24 [] Tdap (28-32wks): [] Rhogam (28-32wks if Rh neg): [] 32 wk ultrasound: [] RSV vaccine (32-36wks) [] GBS (36w or planned delivery sooner): No results found for: STREPBDNA , MICROBIOLOGY Counseling: [] Route of Delivery: [] Timing of Delivery: [] Post risks: [] Diesel Tractor Operator [] Circumcision [] Method of contraception (if desires, tubal benefits checked) Estimated Date of Delivery Comme nts Yes 04/20/2025 Based on last me nstrual period of 07/14/2024 Immunizations Immunization Administration Dates Next Due Influenza, Unspecified 08/07/2024 Social History Tobacco Use Types Packs/Day Years [...] on file Legal Sex Female 11:56 PM IC DESIGN ENGINEER Gender Identity Female 05/29/2023 1:12 PM CDT Sexual Orientation Straight 05/29/2023 1: 12 PM CDT Last Filed Vital Signs Vital Sign Reading Time Taken Comments Blood Pressure 120/68 12/30/2024 4:57 PM IC DESIGN ENGINEER Pulse - - Temperature - - Respiratory Rate - - Oxygen Saturation - - Inhaled Oxygen Concentration - - Weight 70.3 kg (155 lb) 12/30/2024 4:57 PM IC DESIGN ENGINEER Height 157.5 cm (5' 2 ) 05/30/2023 9:21 AM CDT Body Mass Index 28.35 05/30/2023 9:21 AM CDT Plan of Treatment Not on file Procedures Procedure Name Priority Date/Time Associated Diagnosis Comments POCT OB URINE SHORT DIP (GLUCOSE, PROTEIN, KETONES) Routine 12/30/2024 4:57 PM IC DESIGN ENGINEER Encounter for supervision of other normal in second trimester 24 weeks gestation of POCT OB URINE SHORT DIP (GLUCOSE, PROTEIN, KETONES) Routine 12/03/2024 9:49 AM IC DESIGN ENGINEER Encounter for supervision of other normal in second trimester 20 weeks gestation of OB 14 WEEKS OR OVER Schedule Routine, Read Routine (OP Routine) 12/03/2024 8:22 AM IC DESIGN ENGINEER Encounter for supervision of other normal in second trimester POCT OB URINE SHORT DIP (GLUCOSE, PROTEIN, KETONES) Routine 11/07/2024 10:34 AM IC DESIGN ENGINEER Encounter for supervision of normal first in second trimester 16 weeks gestation of HEPATITIS C AB W/REFL TO HCV RNA, QN, PCR (REFL) Routine 09/08/2024 10:52 AM IC DESIGN ENGINEER Screening for STDs (sexually transmitted diseases) Encounter for supervision of normal first in first trimester from Last 3 Months or Most Recently Relevant to Health Maintenance Results * POCT OB urine short dip (glucose, protein, ketones) (12/30/2024 4:57 PM IC DESIGN ENGINEER) Glucose, ur, POC Negative Negative MG/DL Protein, ur, POC Negative Negative Ketones, ur, POC Negative Negative Urine 12/30/2024 4:57 PM IC DESIGN ENGINEER Zaynab Degroot MD POINT OF CARE TEST O RDERABLES Final Result * POCT OB urine short dip (glucose, protein, ketones) (12/03/2024 9:49 AM IC DESIGN ENGINEER) Glucose, ur, POC Negative Negative MG/DL Protein, ur, POC Negative Negative Ketones, ur, POC Negative Negative Urine 12/03/2024 9:49 AM IC DESIGN ENGINEER Zaynab Degroot MD POINT OF CARE TEST O RDERABLES Final Result * US Ob 14 Weeks Or Over (12/03/2024 8:22 AM IC DESIGN ENGINEER) Fetus# Fetus1 VIEWPOINT Estimated Weight 352 g&grams VIEWPOINT Placenta Details posterior VIEWPOINT Presentation Vertex VIEWPOINT Anatomical Region Laterality Modality Abdomen N/A Ultrasound 12/03/2024 8:23 AM IC DESIGN ENGINEER Impressions 12/03/2024 9:52 AM IC DESIGN ENGINEER Anatomy screen complete and within normal limits. Growth and fluid are within normal limits. Gender - Seen Narrative Procedure Note Zaynab Degroot MD - 12/03/2024 IMPRESSION: Anatomy screen complete and within normal limits. Growth and fluid arewithin normal limits. Gender - Seen Result [facility] Cristy Longo COOKER SULFITE IMG OB US PROCEDURES Fi nal Result * POCT OB urine short dip (glucose, protein, ketones) (11/07/2024 10:34 AM IC DESIGN ENGINEER) Glucose, ur, POC Negative Negative MG/DL Protein, ur, POC Negative Negative Ketones, ur, POC Negative Negative Urine 11/07/2024 10:3 4 AM IC DESIGN ENGINEER Result [facility] Zaynab Degroot MD POINT OF CARE TEST O RDERABLES Final Result * HEPATITIS C AB W/REFL TO HCV RNA, QN, PCR (REFL) (09/08/2024 10:52 AM IC DESIGN ENGINEER) Hep C Ab Non Reactive Non Reactive [facility] - 01 Blood 09/08/2024 10:5 2 AM IC DESIGN ENGINEER 09/08/2024 Narrative [facility] - 09/09/2024 9:12 AM IC DESIGN ENGINEER Performed at: 01 - [facility] [id number] Chief Operator: Scott Duran PhD, Phone: [phone] Result [facility] Cristy Longo COOKER SULFITE LAB BLOOD ORDERABLES Fi nal Result [facility] - 01 from Last 3 Months or Most Recently Relevant to Health Maintenance Insurance [facility] CHOICE PLUS CHOICE PLUS CHOICE PLUS Care Teams Payment Analyst Relationship Specialty Start Date End Date Jeferson Colindres MD PCP - General Internal Medicine 12/04/22 Jennifer Huynh, [facility] Breast Risk Program Nurse 10/03/22
--- NOTE | 2025-01-25 20:23 | PM.OBTRLD ---
OB - Triage/Final Diagnosis Visit Information Comments/Additional reasons for admission: I have assessed the risk for this patient, Mela Grider, and determined that she would benefit from observation care. Evaluation Laboratory results: Laboratory Tests 01/02/25 06:36 Urine Color Yellow Urine Appearance Turbid H Urine pH 6.5 Ur Specific [place] 1.016 Urine Protein Trace Urine Glucose (UA) Negative Urine Ketones Negative Ur Blood (Man) 3+ H Urine Nitrate Negative Urine Bilirubin Negative Urine Urobilinogen 1.0 Leukocyte Esterase Rfl 3+ H Urine RBC >100 H Urine WBC 21-50 H Ur Squamous Epith Cells Many H Urine Bacteria 1+ H Urine Casts 0-2 Final Diagnosis (1) Flank pain: Code(s): R10.9 - Unspecified abdominal pain Status: Acute
== END 2025-01-02 13:20 | disposition home or self-care (01) ==
PROVIDERS: Admitting Provider Obstetrics & Gynecology; PCP Nurse Practitioner Family; Visit Provider Obstetrics & Gynecology
DX: O26.892 Other specified pregnancy related conditions, second trimester (principal); R10.9 Unspecified abdominal pain; Z3A.24 24 weeks gestation of pregnancy
CPT/HCPCS: 76775; 81001; 96360; G0378; G0379; J0696; J7120

== ENCOUNTER 2025-05-20 07:01 | Outpatient (CLI) | payer OTHER, SELFPAY ==
--- NOTE | ~2025-05-20 | XR_ITS ---
XR abdomen/kub 1V 05/20/2025 07:26 Indication: Kidney stones Procedure: KUB Comparison: Comparison to multiple prior studies sequentially, with oldest reviewed study dated 05/2020. Findings: There are bilateral renal stones. Bowel gas pattern nonobstructive. No acute osseous abnorm ality. Lung bases unremarkable. Impression: 1: Bilateral nephrolithiasis. Increased stone burden compared with prior study. Reviewed, dictated and finalized at location A. Impression: 1: Bilateral nephrolithiasis. Increased stone burden compared with prior study.
--- OUTSIDE RECORDS SUMMARY | 2025-05-20 07:03 | XMS_ITS | Referral Summary ---
Author Organization [facility] Building D Address [address] [place] [address] Care Team Providers Care Weaver Hand Name Role Phone Jennifer Huynh RN Unavailable Unavailable Jeferson Colindres MD Primary Care Provider [phone] Zaynab Degroot MD Unavailable [phone] Encounters Date Type Department Care Team Description 05/05/2025 11:40 AM CDT Office Visit [facility] [address] [facility] Medical Office Building [address] [place] [address] Zaynab Degroot MD Other specified aftercare following surgery (Primary Dx) 04/16/2025 9:18 AM CDT - 04/20/2025 11:30 AM CDT Hospital Encounter [facility] [address] [place] [address] Zaynab Degroot MD 39 weeks gestation of (Primary Dx); Term ; Arrest of descent, delivered, current hospitalization [O62.1]; Failed vacuum extraction delivery [O66.5]; heart rate non-reassuring affecting management of mother [O36.8390] Discharge Disposition: Discharge to home or self care 04/17/2025 4:05 AM CDT - 04/17/2025 5:45 AM CDT Surgery [facility] [address] [place] [address] Zaynab Degroot MD SECTION 04/16/2025 4:07 PM CDT Anesthesia Event [facility] [address] [place] [phone] Kamille Quiñones MD AdriánJohn miller, [facility] 04/15/2025 11:50 AM CDT Office Visit [facility] [address] [place] [address] Zaynab Degroot MD Encounter for supervision of normal first , third trimester (Primary Dx); 39 weeks gestation of 04/07/2025 Telephone Consultants in [address] [place] [address] Zaynab Degroot MD [facility] 04/07/2025 10:00 AM CDT Office Visit [facility] in [address] [place] [address] Zaynab Degroot MD Encounter for supervision of normal first , third trimester (Primary Dx); 38 weeks gestation of 03/31/2025 10:05 AM CDT Office Visit [facility] in [address] [place] [address] Zaynab Degroot MD Encounter for supervision of normal first , third trimester (Primary Dx); 37 weeks gestation of 03/26/2025 Results Follow-Up [facility] in [address] [place] [address] Miriam Alva NP Group B streptococcus PCR Vaginal/Rectal 03/24/2025 3:00 PM CDT Office Visit [facility] in [address] [place] [address] Zaynab Degroot MD Encounter for supervision of normal first , third trimester (Primary Dx); 36 weeks gestation of 03/17/2025 4:05 PM CDT Office Visit [facility] in [address] [place] [address] Zaynab Degroot MD Encounter for supervision of normal first , third trimester (Primary Dx); 35 weeks gestation of 02/24/2025 3:15 PM CDT Office Visit [facility] in [address] [place] [address] Zaynab Degroot MD Encounter for supervision of normal first , third trimester (Primary Dx); 32 weeks gestation of 02/24/2025 2:15 PM CDT Ancillary Procedure [facility] [address] [place] [phone] Encounter for supervision of normal first , third trimester 02/20/2025 9:30 AM CDT Office Visit [facility] in [address] [address] Zaynab Degroot MD Encounter for supervision of normal first in third trimester (Primary Dx) 02/19/2025 Telephone Consultants in [address] [address] Zaynab Degroot MD ob blood in urine from Last 3 Months Allergies Active Allergy Reactions Criticality Noted Date Comments Ciprofloxacin Rash Medium 05/30/2023 Medications nadoloL (CORGARD) 20 mg tablet Take 1 tablet (20 mg total) by mouth daily 11/03/2022 Active PNV cmb [id number] a-3-dha 29 mg iron- 1 mg-200 mg combo pack Take by mouth Active acetaminophen (TYLENOL) 325 mg tabletIndicatio ns:Pain Take 2 tablets (650 mg total) by mouth every 4 (four) hours as needed for pain 30 tablet 04/19/2025 Active docusate sodium (COLACE) 100 mg capsuleIndicati ons:constipatio n,Stool Softener Take 1 capsule (100 mg total) by mouth 2 (two) times a day 60 capsule 04/19/2025 Active ibuprofen (ADVIL,MOTRIN) 600 mg tabletIndicatio ns:Cramps Take 1 tablet (600 mg total) by mouth every 6 (six) hours as needed for pain 30 tablet 04/19/2025 Active oxyCODONE (ROXICODONE) 5 mg immediate release tabletIndicatio ns:Pain Take 1 tablet (5 mg total) by mouth every 4 (four) hours as needed for pain 30 tablet 04/19/2025 Active Active Problems Problem Noted Date Diagnosed Date Arrest of descent, delivered, current hospitaliz ation 04/17/2025 Failed vacuum extraction delivery 04/17/2025 heart rate non-reassur ing affecting management of mother 04/17/2025 39 weeks gestation of 04/16/2025 Supervision of other normal , antepartu m 09/08/2024 Overview (03/26/2025): NOTES: Partner name: FOB has a younger brother with FOP 1st Trimester: [x] Dating Criteria: JOSÉ MIGUEL given 04/20/25 [x] Labs: Drawn 09/08/24 Lab Results Component Value Date [id number] B 09/08/2024 [id number] Positive 09/08/2024 [x] NIPT: discussed 2nd -3rd Trimester: [x] Anatomy ultrasound: [x] echo (if monochorionic, IVF, hx CHD) - Normal [x] 1h GTT: Lab Results Component Value Date [id number] 136 01/30/2025 [x] CBC: [] Antibody screen: [x] Flu Shot : 08/07/24 [x] Tdap (28-32wks): 01/30/2025 [] Rhogam (28-32wks if Rh neg): [x] 32 wk ultrasound: [] RSV vaccine (32-36wks) [x] GBS (36w or planned delivery sooner): NEGATIVE Lab Results Component Value Date STREPBDNA Negative 03/24/2025 Counseling: [] Route of Delivery: [] Timing of Delivery: [] Post risks: [] Internal Auditor [] Circumcision [] Method of contraception (if desires, tubal benefits checked) Resolved Problems Problem Noted Date Diagnosed Date Resolved Date Decreased movements in second trimester 01/21/20 25 01/30/2025 Immunizations Immunization Administration Dates Next Due Influenza, Unspecified 08/07/2024 Tdap 01/30/2025 Social History Tobacco Use Types Packs/Day Years [...] more drinks on one occasion? Never 03/19/2024 Spencer Depression Scale Answer Date Recorded Spencer Depression Scale Total 0 04/17/2025 The thought of harming myself has occurred to me . Never 04/17/2025 Personal Safety Answer Date Recorded Have you ever been in or are you currently in a harmful physical or emotional relationship or is someone making you feel afraid or unsafe? Denies 01/19/2025 Comments No Sex and Gender Information Value Date Recorded Sex Assigned at Not on file Legal Sex Female 11:56 PM DIRECTOR PHYSICAL THERAPY Gender Identity Female 05/29/2023 1:12 PM CDT Sexual Orientation Straight 05/29/2023 1: 12 PM CDT Last Filed Vital Signs Vital Sign Reading Time Taken Comments Blood Pressure 124/80 05/05/2025 11:40 AM CDT Pulse 93 04/20/2025 7:46 AM CDT Temperature 36.8 C (98.2 F) 04/20/2025 7:46 AM CDT Respiratory Rate 18 04/20/2025 7:46 AM CDT Oxygen Saturation 99% 04/20/2025 7:46 AM CDT Inhaled Oxygen Concentration - - Weight 66.2 kg (146 lb) 05/05/2025 11:40 AM CDT Height 157.5 cm (5' 2) 05/30/2023 9:21 AM CDT Body Mass Index 26.7 05/30/2023 9:21 AM CDT Plan of Treatment Not on file Procedures Procedure Name Priority Date/Time Associated Diagnosis Comments CBC WITHOUT DIFFERENTIAL Routine 04/18/2025 6:11 AM CDT XR KUB IP Routine 04/17/2025 4:44 AM CDT SECTION 04/17/2025 4:10 AM CDT 39 weeks gestation of MI AN PROCEDURE PLACEHOLDER Routine 04/16/2025 4:49 PM CDT B CHECK SAMPLE STAT 04/16/2025 1:26 PM CDT CBC WITHOUT DIFFERENTIAL STAT 04/16/2025 11:56 AM CDT TYPE AND SCREEN STAT 04/16/2025 11:56 AM CDT RPR Routine 04/16/2025 11:56 AM CDT POCT OB URINE SHORT DIP (GLUCOSE, PROTEIN, KETONES) Routine 04/15/2025 11:52 AM CDT Encounter for supervision of normal first , third trimester 39 weeks gestation of POCT OB URINE SHORT DIP (GLUCOSE, PROTEIN, KETONES) Routine 04/07/2025 10:12 AM CDT Encounter for supervision of normal first , third trimester 38 weeks gestation of POCT OB URINE SHORT DIP (GLUCOSE, PROTEIN, KETONES) Routine 03/31/2025 9:53 AM CDT Encounter for supervision of normal first , third trimester 37 weeks gestation of GROUP B STREPTOCOCCUS SCREEN PCR GEN LAB Routine 03/24/2025 5:43 PM CDT Encounter for supervision of normal first , third trimester 36 weeks gestation of POCT OB URINE SHORT DIP (GLUCOSE, PROTEIN, KETONES) Routine 03/24/2025 3:11 PM CDT Encounter for supervision of normal first , third trimester 36 weeks gestation of POCT OB URINE SHORT DIP (GLUCOSE, PROTEIN, KETONES) Routine 03/17/2025 4:04 PM CDT Encounter for supervision of normal first , third trimester 35 weeks gestation of POCT OB URINE SHORT DIP (GLUCOSE, PROTEIN, KETONES) Routine 02/24/2025 2:54 PM CDT Encounter for supervision of normal first , third trimester 32 weeks gestation of US OB FOLLOW UP Schedule Routine, Read Routine (OP Routine) 02/24/2025 2:11 PM CDT Encounter for supervision of normal first , third trimester HEPATITIS C AB W/REFL TO HCV RNA, QN, PCR (REFL) Routine 09/08/2024 10:52 AM DIRECTOR PHYSICAL THERAPY Screening for STDs (sexually transmitted diseases) Encounter for supervision of normal first in first trimester from Last 3 Months or Most Recently Relevant to Health Maintenance Results * (ABNORMAL) CBC without differential (04/18/2025 6:11 AM CDT) WBC 14.38(H) 3.80 - 9.90 K/cumm Hgb 9.8(L) 11.9 - 15.5 g/dL [facility] Comment:Hemoglobin delta due to surgical procedure. Hct 29.7(L) 35.6 - 45.5 % [facility] Plt 179 150 - 400 K/cumm [facility] MPV 10.5 9.1 - 12.[address] [facility] RBC 3.36(L) 3.90 - 5.20 M/cumm [facility] MCV 88.4 81.3 - 96.[address] [facility] MCH 29.2 27.1 - 33.[address] [facility] MCHC 33.0 32.3 - 35.7 g/dL [facility] RDW CV 13.6 11.1 - 14.9 % [facility] RDW SD 43.3 35.7 - 48.[address] [facility] NRBC abs 0.00 0.00 - 0.01 K/cumm [facility] Blood 04/18/2025 6:11 AM CDT 04/18/2025 6:32 AM CDT Zaynab Degroot MD LAB BLOOD ORDERABLES Final Result [facility] [address] [place] [address] * XR Kub (04/17/2025 4:44 AM CDT) Anatomical Region Laterality Modality Body, Abdomen N/A Computed Radiogr aphy 04/17/2025 4:19 AM CDT Impressions 04/17/2025 4:05 PM CDT 1 view of the abdomen taken over 2 exposures was performed. Both hips are seated within acetabulum. Bowel gas pattern is nonobstructive. No retained radiopaque foreign body is identified within the imaged portions of the abdomen. Dictated by: Honey Pineda MD The radiology attending physician has personally reviewed this study, and had reviewed and/or edited this written report and agrees with it. Electronically signed by: Palomo Burkett M.D. Narrative 04/17/2025 4:05 PM CDT EXAMINATION: XR KUB HISTORY: Evaluate for radiopaque foreign body. COMPARISON: None. Procedure Note Palomo Burkett MD - 04/17/2025 EXAMINATION: XR KUB HISTORY: Evaluate for radiopaque foreign body. COMPARISON: None. IMPRESSION: 1 view of the abdomen taken over 2 exposures was performed. Both hips are seated within acetabulum. Bowel gas pattern is nonobstructive. No retained radiopaque foreign body is identified within the imaged portions of the abdomen. Dictated by: Honey Pineda MD The radiology attending physician has personally reviewed this study, and had reviewed and/or edited this written report and agrees with it. Electronically signed by: Palomo Burkett M.D. Zaynab Degroot MD IMG XR PROCEDURES Fi nal Result * MI AN PROCEDURE PLACEHOLDER (04/16/2025 4:49 PM CDT) Narrative John Sampson CRNA - 04/16/2025 4:49 PM CDT John Sampson CRNA 04/16/2025 4:50 PM Epidural Block Patient location: L&D End time: 04/16/2025 4:28 PM Reason for block: labor analgesia Staff: Placed by: MAISHA: John Sampson CRNA Procedure prep: Preprocedure checklist: patient identified, procedure contraindications assessed, procedure consent obtained, IV checked, risks, benefits and alternatives discussed, monitors and equipment checked and timeout performed Patient Position: sitting Procedure performed while patient: awake Monitoring: oximetry and blood pressure Prep solution: iodine povacrylex PPE: provider hat/mask, sterile gloves and sterile drape Skin infiltrated with lidocaine 1%: yes Epidural: Approach: midline Imaging guidance used: no Location: L3-4 Number of attempts:1 Epidural needle: Injection technique: ELLIOTT saline and ELLIOTT air Needle type: Tuohy Needle gauge: 18 G Needle length: 9 cm Loss of resistance: 6 cm Catheter: Catheter type: multi-orifice. Catheter at skin depth: 11 cm Negative aspiration of blood: no Negative aspiration of CSF: no Test dose: negative Assessment: Sensory level - left: full eval pending Sensory level - right: full eval pending Events: patient tolerated procedure well with no complications Additional comments: Yellow epid cath Kamille Quiñones MD ANESTHESIA ORDERABLES Camille l Result * Check Sample (04/16/2025 1:26 PM CDT) ABO Rh B Positive MBC HCLL OTHER 04/16/2025 1:26 PM CDT 04/16/2025 1:55 PM CDT Zaynab Degroot MD LAB BLOOD ORDERABLES Final Result [facility] [address] Department [place] [address] MBC * RPR Blood (04/16/2025 11:56 AM CDT) RPR Nonreactive Nonreactive Comment:Testing performed by : [facility], [address] [facility], [place]., [address] Blood 04/16/2025 11:5 6 AM CDT 04/16/2025 4:56 PM CDT Zaynab Degroot MD LAB MICROBIOLOGY - G ENERAL ORDERABLES Final Result [facility] [address] [place] [address] * (ABNORMAL) CBC without differential (04/16/2025 11:56 AM CDT) WBC 12.43(H) 3.80 - 9.90 K/cumm Hgb 12.9 11.9 - 15.5 g/dL [facility] Hct 38.2 35.6 - 45.5 % [facility] Plt 258 150 - 400 K/cumm [facility] MPV 10.6 9.1 - 12.[address] [facility] RBC 4.45 3.90 - 5.20 M/cumm [facility] MCV 85.8 81.3 - 96.[address] [facility] MCH 29.0 27.1 - 33.[address] [facility] MCHC 33.8 32.3 - 35.7 g/dL [facility] RDW CV 13.2 11.1 - 14.9 % [facility] RDW SD 40.4 35.7 - 48.[address] [facility] NRBC abs 0.00 0.00 - 0.01 K/cumm [facility] Blood 04/16/2025 11:5 6 AM CDT 04/16/2025 11:56 AM CDT Zaynab Degroot MD LAB BLOOD ORDERABLES Final Result [facility] [address] Department of [place], [place] [id number] * Type and screen (04/16/2025 11:56 AM CDT) ABO Rh B Positive Stan, indirect Negative [facility] Blood 04/16/2025 11:5 6 AM CDT 04/16/2025 12:[address] [facility] - 04/16/2025 12:45 PM CDT Has the patient had Daratumumab or Isatuximab in the past 6 months?->Unknown Zaynab Degroot MD LAB BLOOD BANK TEST ORDERABLES Final Result [facility] [address] [place] [address] * POCT OB urine short dip (glucose, protein, ketones) (04/15/2025 11:52 AM CDT) Glucose, ur, POC Negative Negative Protein, ur, POC Negative Negative Ketones, ur, POC Negative Negative Urine 04/15/2025 11:5 2 AM CDT Zaynab Degroot MD POINT OF CARE TEST O RDERABLES Final Result * POCT OB urine short dip (glucose, protein, ketones) (04/07/2025 10:12 AM CDT) Glucose, ur, POC Negative Negative Protein, ur, POC Negative Negative Ketones, ur, POC Negative Negative Urine 04/07/2025 10:1 2 AM CDT Zaynab Degroot MD POINT OF CARE TEST O RDERABLES Final Result * POCT OB urine short dip (glucose, protein, ketones) (03/31/2025 9:53 AM CDT) Glucose, ur, POC Negative Negative Protein, ur, POC Negative Negative Ketones, ur, POC Negative Negative Urine 03/31/2025 9:53 AM CDT Zaynab Degroot MD POINT OF CARE TEST O RDERABLES Final Result * Group B streptococcus PCR Vaginal/Rectal (03/24/2025 5:43 PM CDT) Strep group B DNA Negative Negative [facility] - 01 Comment: Centers for Disease Control and Prevention (CDC) and [place] [employer] of Obstetricians and Gynecologists (ACOG) guidelines for prevention of group B streptococcal (GBS) disease specify co-collection of a vaginal and rectal swab specimen to maximize sensitivity of GBS detection. Per the CDC and ACOG, swabbing both the lower vagina and rectum substantially increases the yield of detection compared with sampling the vagina alone. Penicillin G, ampicillin, or cefazolin are indicated for intrapartum prophylaxis of GBS colonization. Reflex susceptibility testing should be performed prior to use of clindamycin only on GBS isolates from penicillin-allergic women who are considered a high risk for anaphylaxis. Treatment with vancomycin without additional testing is warranted if resistance to clindamycin is noted. Vaginal/Rectal 03/24/2025 5: 43 PM CDT 03/24/2025 Comment:VR Narrative [facility] - 03/26/2025 12:10 PM CDT Performed at: [address] [place] [id number] Gimp Tacker: Scott Duran PhD, Phone: [phone] Zaynab Degroot MD LAB MICROBIOLOGY - G ENERAL ORDERABLES Final Result [facility] - 01 * POCT OB urine short dip (glucose, protein, ketones) (03/24/2025 3:11 PM CDT) Glucose, ur, POC Negative Negative Protein, ur, POC Negative Negative Ketones, ur, POC Negative Negative Urine 03/24/2025 3:11 PM CDT Zaynab Degroot MD POINT OF CARE TEST O RDERABLES Final Result * POCT OB urine short dip (glucose, protein, ketones) (03/17/2025 4:04 PM CDT) Pathologist [facility] Glucose, ur, POC Negative Negative Protein, ur, POC Negative Negative Ketones, ur, POC Negative Negative Urine 03/17/2025 4:04 PM CDT Zaynab Degroot MD POINT OF CARE TEST O RDERABLES Final Result * POCT OB urine short dip (glucose, protein, ketones) (02/24/2025 2:54 PM CDT) Pathologist [facility] Glucose, ur, POC Negative Negative MG/DL Protein, ur, POC Negative Negative Ketones, ur, POC Negative Negative Urine 02/24/2025 2:54 PM CDT Zaynab Degroot MD POINT OF CARE TEST O RDERABLES Final Result * US Ob Follow Up (02/24/2025 2:11 PM CDT) Pathologist [facility] Fetus# Fetus1 VIEWPOINT Estimated Weight 1,863 g&grams VIEWPOINT Placenta Details posterior VIEWPOINT Presentation Vertex VIEWPOINT Anatomical Region Laterality Modality Abdomen N/A Ultrasound 02/24/2025 2:12 PM CDT Impressions 02/24/2025 3:39 PM CDT Growth and MARNI are within normal limits. Narrative Procedure Note Zaynab Degroot MD - 02/24/2025 IMPRESSION: Growth and MARNI are within normal limits. Cristy Longo HEAD BANDER AND LINER OPERATOR IMG OB US PROCEDURES Fi nal Result * HEPATITIS C AB W/REFL TO HCV RNA, QN, PCR (REFL) (09/08/2024 10:52 AM DIRECTOR PHYSICAL THERAPY) Pathologist [facility] Hep C Ab Non Reactive Non Reactive [facility] - 01 Blood 09/08/2024 10:5 2 AM DIRECTOR PHYSICAL THERAPY 09/08/2024 Narrative [facility] - 09/09/2024 9:12 AM DIRECTOR PHYSICAL THERAPY Performed at: - [facility] [address] [id number] Gimp Tacker: Scott Duran PhD, Phone: [phone] us Cristy Longo HEAD BANDER AND LINER OPERATOR LAB BLOOD ORDERABLES Fi nal Result [facility] - 01 from Last 3 Months or Most Recently Relevant to Health Maintenance Insurance CHOICE PLUS CHOICE PLUS [facility] CHOICE PLUS Advance Directives For more information, please contact: [phone] * Full Code (Latest Code Status on File) Date Activated Date Inactivated Comments 04/17/2025 5:46 AM 04/20/2025 3:42 PM * Full Code Date Activated Date Inactivated Comments 04/16/2025 11:19 AM 04/17/2025 5:46 AM Full CPR in case of cardiopulmonary arrest Care Teams Weaver Hand Relationship Specialty Start Date End Date Jeferson Colindres MD PCP - General Internal Medicine 12/04/22 Jennifer Huynh, [facility] Breast Risk Program Nurse 10/03/22 Zaynab Degroot MD [address] [facility] [address] [place] [address] Consulting Physician Obstetrics and Gynecology 04/19/25
--- OUTSIDE RECORDS SUMMARY | 2025-05-20 07:03 | XMS_ITS | Encounter Summary ---
Author Organization [facility] [employer] [facility] Address [address] [facility] Office [address] [place] [address] Care Team Providers Care Chemical Plant Worker Name Role Phone Jennifer Huynh RN Unavailable Unavailable Jeferson Colindres MD Primary Care Provider Zaynab Degroot MD Unavailable [phone] Encounter Details Date Type Department Care Team (Latest Contact Info) Description 03/26/2025 Results Follow-Up [facility] [address] [facility] [address] [place] [address] Miriam Alva, JOSH [address] [facility] [address] [place] [address] Group B streptococcus PCR Vaginal/Rectal Social History Tobacco Use Types Packs/Day Years Used Date Smoking Tobacco: Never AUDIT-C Answer Date Recorded Q1: How often do you have a drink containing alcohol? Never 03/19/2024 Q2: How many drinks containi ng alcohol do you have on a typical day when you are drinking? Patient does not drink Q3: How often do you have si x or more drinks on one occasion? Never 03/19/2024 Personal Safety Answer Date Recorded Have you ever been in or are you currently in a harmful physical or emotional relationship or is someone making you feel afraid or unsafe? 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 Gender Identity Female 05/29/2023 1:12 PM CDT Sexual Orientation Straight 05/29/2023 1: 12 PM CDT documented as of this encounter Plan of Treatment Not on file documented as of this encounter Visit Diagnoses Not on filedocumented in this encounter Care Teams Chemical Plant Worker Relationship Specialty Start Date End Date Jeferson Colindres MD PCP - General Internal Medicine 12/04/22 Jennifer Huynh, [facility] Breast Risk Program Nurse 10/03/22 Zaynab Degroot MD [address] [place] [address] Consulting Physician Obstetrics and Gynecology 04/19/25 documented as of this encounter
--- OUTSIDE RECORDS SUMMARY | 2025-05-20 07:03 | XMS_ITS | Clinical Summary ---
Author Organization [facility] D Address [address] [place] [address] Care Team Providers Care Customer Development Representative Name Role Phone Jennifer Huynh RN Unavailable Unavailable Jeferson Colindres MD Primary Care Provider [phone] Zaynab Degroot MD Unavailable [phone] Allergies Active Allergy Reactions Criticality Noted Date Comments Ciprofloxacin Rash Medium 05/30/2023 Medications nadoloL (CORGARD) 20 mg tablet Take 1 tablet (20 mg total) by mouth daily 11/03/2022 Active PNV cmb 14-txcd-GI-omeg a-3-dha 29 mg iron- 1 mg-200 mg [...] m 09/08/2024 Overview (03/26/2025): NOTES: Partner name: Sean. CARDOSO has a younger brother with FOP 1st Trimester: [x] Dating Criteria: JOSÉ MIGUEL given 04/20/25 [x] Labs: Drawn 09/08/24 Lab Results Component Value Date [id number] B 09/08/2024 [id number] Positive 09/08/2024 [x] NIPT: discussed 2nd -3rd Trimester: [x] Anatomy ultrasound: [x] echo (if monochorionic, IVF, hx CHD) - Normal [x] 1h GTT: Lab Results Component Value Date [id number] 136 01/30/2025 [x] CBC: [] Antibody screen: [x] Flu Shot : 08/07/24 [x] Tdap (28-32wks): 01/30/2025 [] Rhogam (28-32wks if Rh neg): [x] 32 wk ultrasound: [] RSV vaccine (32-36wks) [x] GBS (36w or planned delivery sooner): NEGATIVE Lab Results Component Value Date STREPBDNA Negative 03/24/2025 Counseling: [] Route of Delivery: [] Timing of Delivery: [] Post risks: [] Tire Repairman [] Circumcision [] Method of contraception (if desires, tubal benefits checked) Resolved Problems Problem Noted Date Diagnosed Date Resolved Date Decreased movements in second trimester 01/21/20 25 01/30/2025 Encounters Date Type Department Care Team Description 05/05/2025 11:40 AM CDT [facility] Visit [facility] [address] [facility] [address] [place] [address] Zaynab Degroot MD Other specified aftercare following surgery (Primary Dx) 04/17/2025 4:05 AM CDT - 04/17/2025 5:45 AM CDT Surgery [facility] [address] [place] [phone] Zaynab Degroot MD SECTION 04/16/2025 4:07 PM CDT Anesthesia Event [facility] [address] [place] [phone] Kamille Quiñones MD [place], [facility] 04/16/2025 9:18 AM CDT - 04/20/2025 11:30 AM CDT Hospital Encounter [facility] [address] [place] [phone] Zaynab Degroot MD 39 weeks gestation of (Primary Dx); Term ; Arrest of descent, delivered, current hospitalization [O62.1]; Failed vacuum extraction delivery [O66.5]; heart rate non-reassuring affecting management of mother [O36.8390] Discharge Disposition: Discharge to home or self care 04/15/2025 11:50 AM CDT Office Visit [facility]'s [address] [phone] Zaynab Degroot MD Encounter for supervision of normal first , third trimester (Primary Dx); 39 weeks gestation of 04/07/2025 10:00 AM CDT Office Visit [facility] [address] [place] [phone] Zaynab Degroot MD Encounter for supervision of normal first , third trimester (Primary Dx); 38 weeks gestation of 04/07/2025 Telephone [facility] [address] Medical [facility] D [address] [place] [phone] Zaynab Degroot MD bleeding 03/31/2025 10:05 AM CDT Office Visit [facility] [address] [place] [phone] Zaynab Degroot MD Encounter for supervision of normal first , third trimester (Primary Dx); 37 weeks gestation of 03/26/2025 Results Follow-Up [facility] [address] [place] [phone] Miriam Alva NP Group B streptococcus PCR Vaginal/Rectal 03/24/2025 3:00 PM CDT Office Visit [facility] [address] [place] [phone] Zaynab Degroot MD Encounter for supervision of normal first , third trimester (Primary Dx); 36 weeks gestation of 03/17/2025 4:05 PM CDT Office Visit [facility] [address] [phone] Zaynab Degroot MD Encounter for supervision of normal first , third trimester (Primary Dx); 35 weeks gestation of 02/24/2025 3:15 PM CDT Office Visit [facility] [address] [phone] Zaynab Degroot MD Encounter for supervision of normal first , third trimester (Primary Dx); 32 weeks gestation of 02/24/2025 2:15 PM CDT Ancillary Procedure [facility] [address] [place] [phone] Encounter for supervision of normal first , third trimester 02/20/2025 9:30 AM CDT Office Visit [facility] [address] [phone] Zaynab Degroot MD Encounter for supervision of normal first in third trimester (Primary Dx) 02/19/2025 Telephone [facility] [address] [facility] Medical Office Building [address] [place] [address] Zaynab Degroot MD ob blood in urine from Last 3 Months Immunizations Immunization Administration Dates Next Due Influenza, Unspecified 08/07/2024 Tdap 01/30/2025 Surgical History Surgery Date Site/Laterality Comments WISDOM [...] more drinks on one occasion? 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 Gender Identity Female 05/29/2023 1:12 PM CDT Sexual Orientation Straight 05/29/2023 1: 12 PM CDT Obstetrics History Para Term AB IAB SAB Ectopic Multiple Livin g Live Births 1 1 1 0 0 0 0 0 0 1 1 Date Outcome GA Total Labor Labor/2nd/3rd Weight Sex Type Anes PTL Pavithra A1 A5 Name Clin 2024 Term 39w 4d 2.75 kg (6 lb 1 oz) F C-Sec tion Epidur al N Livin g 8 9 Emmy A Hazlet t Verti cchio , Honey na Bivalve , MD Delivery Location:This Facil ity ([facility] PROCEDURE) Summary Episode Dates Number of Fetuses Estimated Date of Delivery 09/08/2024 - Present (05/20/2025) 1 04/20/2025 (set by Cristy Longo NP on 09/08/2024 based on Last Menstrual Period on 07/14/2024) Dating Summary Based On JOSÉ MIGUEL GA Diff Last Menstrual Period on 07/14/2024 04/20/2025 Working Ultrasound on 09/08/2024 04/24/2025 -4d GA:7w3d Overview and Plan :Lyle Support person:fern - Vitals Date GA Fund Present FHR Mvmt BP Weight Edema Alb Glu Ket Dil/ Eff/Sta 025 27w0d Inpatient data not displayed here. See encounter summary. 025 37w1d 120/7 4 76.7 kg (169 lb) 11/22/-4 025 38w1d 122/8 4 77.1 kg (170 lb) 2/50/-3 025 39w2d 120/7 4 76.2 kg (168 lb) 2/50/-3 025 39w4d Inpatient data not displayed here. See encounter summary. Notes Progress Notes - Office Visi t - 05/05/2025 - GA:39w4d 05/05/2025 - 39w4d - Olivia Zaynab omer MD Images from the original note were not included. Exam Core Cleaner offered and declined Subjective: Mela Grider is a 34 y.o. year old female who presents for a two week post-op exam. was complicated by arrest of descent/non-reassuring status. Baby is doing well. Baby is bottle feeding. Mood: Good Cycles:Cycle has not returned PHYSICAL EXAM: BP 124/80 Wt 146 lb (66.2 kg) LMP 07/14/2024 No BMI 26.70 kg/m General: alert, orientated, cooperative Abdomen: soft, non-tender, no palpable masses, scars Pfannensteil scar present Breast: not examined Manager Science exam: defer 1. Other specified aftercare following surgery (Primary) - healing well, steris removed. - Discussed continued precautions. No follow-ups on file. Zaynab Degroot MD Progress Notes - Hospital En counter - 04/20/2025 - GA:39w4d 04/20/2025 - 39w4d - Olivia Zaynab omer MD OB Progress Note 04/20/2025 8:08 AM Subjective: Patient is feeling well, pain adequately controlled, passing flatus, tolerating diet, ambulating. Objective: Vitals: 04/19/25 0815 04/19/25 2100 04/20/25 0450 04/20/25 0746 BP: 108/61 126/81 123/84 123/73 Pulse: 79 89 79 93 Resp: 18 16 16 18 Temp: 36.9 C (98.4 F) 36.6 C (97.9 F) 36.8 C (98.3 F) 36.8 C (98.2 F) TempSrc: Oral Oral Oral SpO2: 100% 99% 99% 99% No intake or output data in the 24 hours ending 04/20/25 0808 Exam: General: alert, cooperative, no distress Breasts: non engorged Abdomen: soft, non tender, normal; BS present, firm fundus, non tender Incision: no erythema, induration or drainage, steris intact Lochia: appropriate Extremities: No suggestion of DVT Results: My review of labs, imaging, notes and other tests shows no new significant findings. Assessment / Plan: 1.) Post-op: tolerating diet, passing gas, voiding spontaneously, pain controlled with oral regimen, ambulating, and incision healing well. 2.) : baby doing well. Bottle feeding. Mood stable 3.) Dispo: dc home, instructions reviewed. Zaynab Degroot MD 04/19/2025 - 39w4d - Zaynab Ramos MD OB Progress Note 04/19/2025 7:55 AM Subjective: Patient is feeling well, pain adequately controlled, passing flatus, tolerating diet, ambulating. Objective: Vitals: 04/17/25234404/18/2532704/18/25 0832 04/18/25 1944 BP: 108/72 104/57 108/62 113/59 Pulse: 82 73 78 85 Resp: 18 18 18 18 Temp: 36.8 C (98.2 F) 36.9 C (98.4 F) 36.7 C (98 F) 36.7 C (98 F) TempSrc: Oral Oral Oral SpO2: 98% 99% 99% 100% No intake or output data in the 24 hours ending 04/19/25 0755 Exam: General: alert, cooperative, no distress Breasts: non engorged Abdomen: soft, non tender, normal; BS present, firm fundus, non tender Incision: no erythema, induration or drainage, steris intact Lochia: appropriate Extremities: No suggestion of DVT Results: My review of labs, imaging, notes and other tests shows no new significant findings. Assessment / Plan: 1.) Post-op: tolerating diet, passing gas, voiding spontaneously, pain controlled with oral regimen, ambulating, and incision healing well. 2.) : baby doing well. . Mood stable 3.) Dispo: routine post-op Zaynab Degroot MD 04/18/2025 - 39w4d - [employer] Images from the original note were not included. OB Progress Note 04/18/2025 11:02 AM Subjective: Patient is feeling well, pain adequately controlled, passing flatus, tolerating diet, ambulating. Objective: Vitals: 04/17/25200804/17/25234404/18/2532704/18/25 0832 BP: 110/61 108/72 104/57 108/62 Pulse: 68 82 73 78 Resp: 18 18 18 18 Temp: 36.8 C (98.2 F) 36.8 C (98.2 F) 36.9 C (98.4 F) 36.7 C (98 F) TempSrc: Oral Oral Oral SpO2: 97% 98% 99% 99% Intake/Output Summary (Last 24 hours) at 04/18/2025 1102 Last data filed at 04/18/2025 0328 Gross per 24 hour Intake 1201 ml Output 1850 ml Net -649 ml Exam: General: alert, cooperative, no distress Breasts: non engorged Abdomen: soft, non tender, normal; BS present, firm fundus, non tender Incision: no erythema, induration or drainage, steris intact Lochia: appropriate Extremities: No suggestion of DVT Results: Hematology Lab History Latest Ref Rng & Units 09/08/2024 10:52 01/30/2025 14:37 04/16/2025 11:56 04/18/2025 06:11 Labs - Hematology WBC 3.80 - 9.90 K/cumm 9.5 12.5 12.43 14.38 Total Hb, POC 11.9 - 15.5 g/dL 14.2 11.6 12.9 9.8 Hct 35.6 - 45.5 % 42.5 33.8 38.2 29.7 Plt 150 - 400 K/cumm 258 179 Platelets 150 - 450 x10E3/uL 349 293 Assessment / Plan: 1.) Post-op: tolerating diet, passing gas, voiding spontaneously, pain controlled with oral regimen, ambulating, and incision healing well. 2.) : baby doing well. . Mood stable 3.) Dispo: routine post-op Zaynab Degroot MD 04/17/2025 - 39w4d - Colleen Bill MD OB Hospitalist Addendum to Op Note I was requested to assist at Section with Mela Grider. 04/17/2025 5:05 AM Attending: Zaynab Degroot MD Date of surgery: 04/17/2025 Procedure: emergent low transverse section Diagnosis/indication: 1. with IUP at 39w4d 2. Arrest of descent 3. Failed vacuum attempt 4. Non-reassuring heart tones Due to the complexity of this procedure and the increasing health concerns of the population, it was necessary to have an experienced OB Hospitalist help with providing exposure, hemostasis, positioning, suture management during the amezquita steps to facilitate the delivery of the baby. This procedure would not be possible without the aid of a qualified certified anesthesiologist assistant. Colleen Quinteros MD 04/17/2025 - 39w4d - Colleen Bill MD OB Hospitalist Note - CTSP re: FHT decel Patient with drop in FHT's to the 90's She was changed from side to side Pitocin has been off for >1hr SVE - 6/90%/0 station per RN No cord noted Ctxs q1-2 mins Patient given a bolus of IV fluid and Terbutaline 0.125mg IV Ctxs spaced out Total decel was approx 10-12 mins FHT's now 135's with moderate variability D/W Dr Degroot Continue to monitor and anticipate vaginal delivery 04/16/2025 - 39w3d - Colleen Bill MD OB Hospitalist Note Patient is a 34yo with IUP at 39w3d She presented for induction of labor FHT's - 130's with moderate variability and accels Occ small spikey decel noted Overall tracing is Reassuring Occ to start pitocin augmentation at this time Continue to anticipate vaginal delivery 04/16/2025 - 39w3d - Olivia Madrid CNM CN Hospitalist Triage Note Subjective: Mela Grider is a 34 y.o. female at 39w3d gestation who presents to triage with a c/o Uterine contractions. Objective: SVE deferred due to pending admission to L&D. Patient will be sent to L&D when staffing/room availability allows. LMP 07/14/2024 Monitoring: Heart Rate: Baseline: 135 bpm Variability: Moderate Accelerations: present; 15bpm x 15bpm Decelerations: absent status reactive and reassuring Time On: 0930 Uterine Activity: Contraction Frequency: Irregular and mild, q6-10 minutes A/P: Mela Grider is a 34 y.o. female at 39w3d gestation. - Possible early labor - status reactive and reassuring - Encouraged to continue to keep hydrated - Comfort measures given for early labor - Patient to be sent to L&D when staffing/room availability allows - RN to call Dr Degroot to update when patient admitted Case reviewed with Dr. Quinteros, [place] METAL CASKET ASSEMBLER. Olivia Madrid CNM Progress Notes - Office Visi t - 04/15/2025 - GA:39w2d 04/15/2025 - 39w2d - Zaynab Ramos MD Presents for fullterm PNV. Good movement. Irregular contractions. No VB or LOF. Precautions reviewed. Discussed timing of delivery and elective induction of labor - desires eIOL, understands r/b/a, will proceed with IOL tomorrow 04/16 at 8:00am. Progress Notes - Office Visi t - 04/07/2025 - GA:38w1d 04/07/2025 - 38w1d - Zaynab Ramos MD Presents for fullterm PNV. Good movement. Irregular contractions. No VB or LOF. Precautions reviewed. GBS negative. Progress Notes - Office Visi t - 03/31/2025 - GA:37w1d 03/31/2025 - 37w1d - Zaynab Ramos MD Presents for fullterm PNV. Good movement. Irregular contractions. No VB or LOF. Precautions reviewed. GBS negative. Progress Notes - Office [facility] t - 03/24/2025 - GA:36w1d 03/24/2025 - 36w1d - Zaynab Ramos MD Pt presents for 36 week PNV. Notes good movement. Denies contractions. PTL precautions reviewed. GBS obtained. RTO 1 week Progress Notes - Office [facility] - 03/17/2025 - GA:35w1d 03/17/2025 - 35w1d - Zaynab Ramos MD Pt presents for 35 week PNV. Notes good movement. Denies contractions. PTL precautions reviewed. RTO 1 week Progress Notes - Office [facility] - 02/24/2025 - GA:32w1d 02/24/2025 - 32w1d - Zaynab Ramos MD Presents for 32 week US. Formal US today AGA growth pattern- EFW 32% VTX presentation Normal MARNI PTL precautions reviewed. Progress Notes - Office [facility] t - 02/20/2025 - GA:31w4d 02/20/2025 - 31w4d - Zaynab Ramos MD Presents for 31.4 week PNV Isolated episode of blood in urine Sunday and . Nothing today. Good FM. No contractions. No UTI symptoms, no flank pain. Reassuring DT today. RTO Sunday as scheduled. Precautions reviewed. Rh+ Progress Notes - Office Visi t - 02/10/2025 - GA:30w1d 02/10/2025 - 30w1d - Zaynab Ramos MD Presents for 30 week PNV. Feeling well. Good movement. Reviewed obtaining a eye care professional, breast pump, and and classes/tours. Plans to breastfeed, resources provided. Mood stable. RTO 2 weeks for growth US Progress Notes - Office Visi t - 01/30/2025 - GA:28w4d 01/30/2025 - 28w4d - Zaynab Ramos MD Presents for 28 week PNV. Good movement. Denies contractions. GCT today. Tdap today Mood stable - no signs or symptoms of depression or anxiety. Discussed peds, /breast pump, as well as, education classes/tours. RTO 2 weeks Progress Notes - Office Visi t - 12/30/2024 - GA:24w1d 12/30/2024 - 24w1d - Zaynab Ramos MD Presents for 24 week PNV. She is feeling well. Notes good movement. Denies OB complaints. echo scheduled, await imaging results. RTO 4 weeks, will have GCT and CBC at that time. 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 Anatomy scan performed today - normal anatomy, EFW 51% Overall, feeling well. Discussed movement. 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 Feeling well. Intermitten movement. Normal NIPT results RTO 4 weeks for anatomy scan MATIC NAILING MACHINE FEEDER Progress Notes - Office Visi t - 10/06/2024 - GA:12w0d 10/06/2024 - 12w0d - Zaynab Ramos MD Presents for 12 week PNV. Feeling ok, nausea improving Reviewed OB labs. Obtained NIPT testing. Declines Carrier screening testing. 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 Subjective: Mela Grider is a 33 y.o. female who presents for Chief Complaint Patient presents with Amenorrhea Pt offered and declined rail manager for today's visit. . HPI: Pt offered and declined rail manager. Patient presents for amenorrhea. She took Letrozole 5mg this cycle. LMP 07/14/24. 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 [...] kg/m Physical Exam General: alert, orientated, cooperative Manager Science exam: External:normal appearing and no lesions Urethra: [...] - Antibody screen; Future - Hgb Fractionation [place]; Future - ABO/Rh - Rubella IgG antibody Blood - RPR Titer Blood - CBC without differential - Hemoglobin A1c - Hepatitis B Surface Antigen Blood - HEPATITIS C AB W/REFL TO HCV RNA, QN, PCR (REFL) - HIV 1/2 Antibody plus p24 Antigen Blood - TSH+Free T4 - Antibody screen - Hgb Fractionation [place] 6. Amenorrhea Lab Results Component Value Date HCGU Positive (A) 09/08/2024 - POCT hCG, urine 7. Encounter for supervision of other normal in second trimester - US Ob 14 Weeks Or Over; Future 8. Encounter for supervision of normal first , third trimester - US Ob Follow Up; Future Return in about 4 weeks (around 10/06/2024) for ob return. Cristy Longo NP MATIC NAILING MACHINE FEEDER Last Filed Vital Signs Vital Sign Reading [...] Last Done Comments Cervical Cancer Screening 1992 Varicella Vaccines (1 of 2 - 13+ 2-dose series) 2005 Hepatitis B Screening 2010 Covid-19 Vaccine ( season) 2024 10/30/2021, 01/11/2021, 12/02/2020 Regular Well Visit/Exam 18-64 10/24/2024 10/24/2023 Influenza Vaccine (#1) 2025 , 09/06/2022, 09/07/2021, Additional history exists Depression Screening 04/17/2026 04/17/2025 DTaP/Tdap/Td Vaccine (2 - Td or Tdap) 01/30/2035 01/30/2025 Hepatitis C Screening Completed 09/08/2024 HPV Vaccines [...] 4:10 AM CDT 39 weeks gestation of IN AN PROCEDURE PLACEHOLDER Routine 04/16/2025 4:49 PM [...] QN, PCR (REFL) Routine 09/08/2024 10:52 AM AUTOMATIC NAILING MACHINE 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 Hct 29.7(L) 35.6 - 45.5 % [facility] Plt 179 150 - 400 K/cumm [facility] MPV 10.5 9.1 - 12.3 fL [facility] RBC 3.36(L) 3.90 - 5.20 M/cumm [facility] MCV 88.4 81.3 - 96.4 fL [facility] MCH 29.2 27.1 - 33.3 pg [facility] MCHC 33.0 32.3 - 35.7 g/dL [facility] RDW CV 13.6 11.1 - 14.9 % [facility] RDW SD 43.3 35.7 - 48.1 fL [facility] NRBC abs 0.00 0.00 - 0.01 K/cumm [facility] Blood 04/18/2025 6:11 AM CDT 04/18/2025 6:32 AM CDT us Zaynab Degroot MD LAB BLOOD ORDERABLES Final Result [facility] [address] Department of Laboratories [place], [place] [id number] * XR Kub (04/17/2025 4:44 AM CDT) [...] IMG XR PROCEDURES Fi nal Result * IN AN PROCEDURE PLACEHOLDER (04/16/2025 4:49 PM CDT) [...] Degroot MD LAB BLOOD ORDERABLES Final Result Performing Organization Address [facility] Co de Phone Number [facility] [address] Department of Laboratories [place], [place] [id number] MBC * RPR Blood (04/16/2025 11:56 AM CDT) RPR Nonreactive Nonreactive Comment:Testing performed by : [facility], [address] [place] [address] Blood 04/16/2025 11:5 6 AM CDT 04/16/2025 4:56 PM CDT Zaynab Degroot MD LAB MICROBIOLOGY - G ENERAL ORDERABLES Final Result [facility] [address] Department [place] [address] * (ABNORMAL) CBC without differential (04/16/2025 11:56 AM CDT) [facility] WBC 12.43(H) 3.80 - 9.90 K/cumm Hgb 12.9 11.9 - 15.5 g/dL [facility] Hct 38.2 35.6 - 45.5 % [facility] Plt 258 150 - 400 K/cumm [facility] MPV 10.6 9.1 - 12.3 fL [facility] RBC 4.45 3.90 - 5.20 M/cumm [facility] MCV 85.8 81.3 - 96.4 fL [facility] MCH 29.0 27.1 - 33.3 pg [facility] MCHC 33.8 32.3 - 35.7 g/dL [facility] RDW CV 13.2 11.1 - 14.9 % [facility] RDW SD 40.4 35.7 - 48.1 fL [facility] NRBC abs 0.00 0.00 - 0.01 K/cumm [facility] Blood 04/16/2025 11:5 6 AM CDT 04/16/2025 11:56 AM CDT Zaynab Degroot MD LAB BLOOD ORDERABLES Final Result [facility] [address] Department [place] [address] * Type and screen (04/16/2025 11:56 AM CDT) [facility] ABO Rh B Positive Stan, indirect Negative [facility] Blood 04/16/2025 11:5 6 AM CDT 04/16/2025 12:04 PM CDT Narrative [facility] - 04/16/2025 12:45 PM CDT Has the patient had Daratumumab or Isatuximab in the past 6 months?->Unknown Zaynab Degroot MD LAB BLOOD BANK TEST ORDERABLES Final Result [facility] [address] Department [place] [address] * POCT OB urine short dip (glucose, [...] for Disease Control and Prevention (CDC) and [place] [employer] of Obstetricians and Gynecologists (ACOG) guidelines [...] Vaginal/Rectal 03/24/2025 5: 43 PM CDT 03/24/2025 Comment:DIPAK Narrative [facility] - 03/26/2025 12:10 PM CDT Performed at: [address] [place] [id number] Billet Header: Scott Duran PhD, Phone: [phone] Zaynab Degroot MD LAB MICROBIOLOGY - G ENERAL ORDERABLES Final Result [facility] * POCT OB urine short dip (glucose, protein, ketones) (03/24/2025 3:11 PM CDT) Glucose, ur, POC Negative Negative Protein, ur, POC Negative Negative Ketones, ur, POC Negative Negative Urine 03/24/2025 3:11 PM CDT Zaynab Degroot MD POINT OF CARE TEST O RDERABLES Final Result * POCT OB urine short dip (glucose, protein, ketones) (03/17/2025 4:04 PM CDT) Glucose, ur, POC Negative Negative Protein, ur, POC Negative Negative Ketones, ur, POC Negative Negative Urine 03/17/2025 4:04 PM CDT Zaynab Degroot MD POINT OF CARE TEST O RDERABLES Final Result * POCT OB urine short dip (glucose, protein, ketones) (02/24/2025 2:54 PM CDT) Pathologist [facility] Glucose, ur, POC Negative Negative MG/DL Protein, ur, POC Negative Negative Ketones, ur, POC Negative Negative Urine 02/24/2025 2:54 PM CDT Zaynab Degroot MD POINT OF CARE TEST O RDERABLES Final Result * US Ob Follow Up (02/24/2025 2:11 PM CDT) Fetus# [id number] VIEWPOINT Estimated Weight 1,863 g&grams VIEWPOINT Placenta Details posterior VIEWPOINT Presentation Vertex VIEWPOINT Anatomical Region Laterality Modality Abdomen N/A Ultrasound 02/24/2025 2:12 PM CDT Impressions 02/24/2025 3:39 PM CDT Growth and MARNI are within normal limits. Narrative Procedure Note Zaynab Degroot MD - 02/24/2025 IMPRESSION: Growth and MARNI are within normal limits. Cristy Longo NP IMG OB US PROCEDURES Fi nal Result * HEPATITIS C AB W/REFL TO HCV RNA, QN, PCR (REFL) (09/08/2024 10:52 AM AUTOMATIC NAILING MACHINE FEEDER) Pathologist [facility] Hep C Ab Non Reactive Non Reactive [facility] - 01 Blood 09/08/2024 10:5 2 AM AUTOMATIC NAILING MACHINE FEEDER 09/08/2024 Narrative [facility] - 09/09/2024 9:12 AM AUTOMATIC NAILING MACHINE FEEDER Performed at: [facility] [id number] Billet Header: Scott Duran PhD, Phone: [phone] Cristy Longo NP LAB BLOOD ORDERABLES Fi nal Result [facility] - 01 from Last 3 Months or Most Recently Relevant to Health Maintenance Insurance CHOICE PLUS CHOICE PLUS CHOICE PLUS Advance Directives For more information, please contact: [phone] * Full Code (Latest Code Status on File) Date Activated Date Inactivated Comments 04/17/2025 5:46 AM 04/20/2025 3:42 PM * Full Code Date Activated Date Inactivated Comments 04/16/2025 11:19 AM 04/17/2025 5:46 AM Full CPR in case of cardiopulmonary arrest Care Teams Customer Development Representative Relationship Specialty Start Date End Date Jeferson Colindres MD PCP - General Internal Medicine 12/04/22 Jennifer Huynh, RN [facility] Breast Risk Program Nurse 10/03/22 Zaynab Degroot MD [id number] [facility] [address] [place] [address] Consulting Physician Obstetrics and Gynecology 04/19/25
== END 2025-05-20 07:02 | disposition home or self-care (01) ==
PROVIDERS: PCP Nurse Practitioner Family; Visit Provider Physician Assistant
DX: N20.0 Calculus of kidney (principal)
CPT/HCPCS: 74018